=== PATIENT | male | born 1950 | race Caucasian/White ===

== ENCOUNTER → 2016-03-06 | Outpatient (CLI) | payer BC ==
--- NOTE | 2016-03-06 17:31 | CONS ---
DATE OF CONSULTATION: REASON FOR CONSULTATION: Obstructive sleep apnea. This is a 66-year-old male patient coming in for evaluation and treatment of sleep apnea that was diagnosed back in 2007. The patient was investigated through [facility] back then, and he was given a CPAP machine which he was unable to use more than 6 months. He quit the treatment, and over the years he became much more symptomatic. He is at the point where his sleep quality is very poor and he is having excessive daytime fatigue and sleepiness with weakness, lethargy and diminished stamina. He is snoring loudly. He stops breathing on multiple occasions. He chokes and gasps for air during sleep. His sleep is quite restless and fragmented. He goes to bed around 10 p.m., wakes up at 4:45 a.m. in the morning. He is averaging around 6 hours of sleep. He has gained a significant amount of weight over the years; his weight is up by around 25 pounds over the past 5 years. His current [place] score is 7. PAST MEDICAL HISTORY: 1. Obstructive sleep apnea. 2. Obesity. 3. Bronchial asthma. 4. Hypertension. 5. Hyperlipidemia. 6. GERD. 7. History of kidney cancer, resected. PAST SURGICAL HISTORY: 1. Partial nephrectomy. 2. Previous tracheostomy for prolonged vent-dependent respiratory failure postoperatively. ALLERGIES: 1. ZOCOR. 2. He also has allergies to ANIMAL DANDER, include including CATS. 3. PEANUT ALLERGY. Socially, he is a nonsmoker. No history of alcohol. No history IV drugs. FAMILY HISTORY: Noncontributory. Outpatient medication list includes: 1. Lasix 40 mg twice a day. 2. Albuterol nebulized treatments p.r.n. 3. Fenofibrate 200 mg p.o. daily. 4. Lisinopril 10 mg p.o. daily. 5. Metoprolol 100 mg twice a day. 6. Protonix 40 daily. 7. Potassium chloride 10 mEq tablet daily. 8. Singulair 10 mg p.o. daily. 9. Symbicort 160/4.5 two puffs twice a day. 10. Ventolin HFA on a p.r.n. basis. 11. Xolair 150 mg injection every 2 weeks. REVIEW OF SYSTEMS: Twelve-point review of systems was done; essentially negative other than things mentioned above in the history of present illness. No sleepwalking or sleeptalking. No hypnagogic hallucinations. No nocturnal GE reflux. No bruxism. No anxiety, depression or panic attacks. BP is 150/65, pulse 60, respirations 16, temperature 98.6. Saturation 93% on room air. Height is 5 feet 11 inches. Weight is 345. Neck size is 20-3/4 of an inch. BMI is 47.4. GENERAL APPEARANCE: Calm, comfortable. HEENT: Short neck. Crowding of the posterior pharynx. Mallampati class IV. No goiter or neck masses. LUNGS: Diminished breath sounds; otherwise clear. HEART: Sounds are regular rate and rhythm. Normal S1, S2. No S3. No S4. No murmurs. ABDOMEN: Soft, obese, nontender. Organs cannot be accurately palpated. There is no direct tenderness. No rebound tenderness or guarding. EXTREMITIES: Trace edema. There is no cyanosis or clubbing. IMPRESSION: 1. Symptomatic obstructive sleep apnea, currently under investigation. The patient will need a reevaluation to assess the presence and the severity of obstructive sleep apnea and treated accordingly. 2. Poor sleep quality for reasons mentioned above. 3. Hypersomnia with an [place] score of 7. 4. Obesity with a body mass index of 47.4. 5. Bronchial asthma, severe, persistent. 6. Hypertension. 7. Hyperlipidemia. 8. Gastroesophageal reflux disease. 9. History of kidney cancer, surgically resected. PLAN: 1. Encourage weight loss. 2. Implement good sleep hygiene measures. 3. Extend sleep hours to an average of 7 hours of sleep every night. 4. Proceed with a polysomnogram and treat accordingly. He will likely need to go back on CPAP titration. I will make the appropriate adjustments on his CPAP pressure and mask interface to ensure successful treatment.
== END | disposition home or self-care (01) ==
LOC: SLEEP 15:52
PROVIDERS: ATTEND Internal Medicine Critical Care Medicine
DX: G47.33 Obstructive sleep apnea (adult) (pediatric) (principal); G47.10 Hypersomnia, unspecified; E66.9 Obesity, unspecified; Z68.42 Body mass index [BMI] 45.0-49.9, adult; J44.9 Chronic obstructive pulmonary disease, unspecified; I10 Essential (primary) hypertension; K21.9 Gastro-esophageal reflux disease without esophagitis; Z85.528 Personal history of other malignant neoplasm of kidney; Z98.890 Other specified postprocedural states; Z79.899 Other long term (current) drug therapy; Z88.8 Allergy status to other drugs, medicaments and biological substances; Z91.010 Allergy to peanuts; Z91.048 Other nonmedicinal substance allergy status
CPT/HCPCS: 99211

== ENCOUNTER → 2016-07-18 | Outpatient (CLI) | payer BC ==
--- NOTE | 2016-07-19 08:20 | XR ---
EXAMINATION TYPE: XR tibia fibula RT DATE OF EXAM: 07/18/2016 11:52 AM COMPARISON: NONE HISTORY: Cellulitis TECHNIQUE: Two views are submitted. FINDINGS: The osseous structures are intact. The arthropathy of the knee joint noted. Ossifications adjacent t o the lateral malleolus or chronic. Correlate for previous trauma. No destructive changes. Calcaneal spur noted. Ossification adjacent to the anterior margin of the tibia appears chronic.. IMPRESSION: 1. No acute osseous abnormality.
== END ==
LOC: RADXRYALE 10:20
PROVIDERS: ATTEND Family Medicine
DX: M79.604 Pain in right leg (principal)

== ENCOUNTER → 2016-09-04 | Outpatient (CLI) | payer BC ==
--- NOTE | 2016-09-05 11:36 | PN ---
This patient was diagnosed as having severe obstructive sleep apnea with AHI of 95. The patient is morbidly obese and he was having excessive hypersomnia and sleepiness during the day. He also demonstrated severe nocturnal oxygen desaturations. The patient was started at BiPAP pressure of 24/20 cm of water and today is coming in for a compliancy check. He felt that initially it was difficult to tolerate this high level of pressure. However, he is at the point where he is loving it and he is feeling much more comfortable and rested at night while being on a BIPAP. He is currently on BIPAP at pressure of 24/20 and utilizing his Simplex Full Face mask medium sized. He is averaging 6.4 hours of BIPAP use every night. His BIPAP use for more than 4 hours is 100%. Leak factor is 23 liters per minute and a AHI while on treatment is down to 0.5. He is improving. He is benefiting from treatment.He is much more awake and alert during the day and his chronic hypersomnia is also improving. His current vitals: Blood pressure is 152/69, pulse 66, respirations 16, temperature 99.0, weight is 345, saturations are 92% on room air. GENERAL APPEARANCE: Calm, comfortable. HEENT: Short neck, crowding of posterior pharynx. LUNGS: Clear to auscultation. HEART: Sounds are regular rate and rhythm. Normal S1, S2. No S3, no murmurs. ABDOMEN: Soft, nontender. No organomegaly although this cannot be palpated due to morbid obesity. EXTREMITIES: No edema, no cyanosis, no clubbing. IMPRESSION: 1. Severe symptomatic obstructive sleep apnea with AHI of 95, currently on BIPAP with pressure of 24/20 with excellent clinical response and compliance. 2. Obesity, morbid, with body mass index of 48. 3. Hypertension. 4. Hyperlipidemia. 5. Bronchial asthma. PLAN: 1. Continue BIPAP therapy at the same level of pressures. 2. Patient is complaint and the patient was encouraged to lose weight. 3. Implement good sleep hygiene measures. 4. Clinically improve and will continue to follow. Will check a nocturnal oxygen analysis, oximetry to make sure the patient is not having any significant nocturnal oxygen desaturation and if not will keep the patient only on BIPAP and eliminate O2 supplements at night. 5. Will continue to follow. See me back in follow up. MANUEL
== END ==
LOC: SLEEP 16:18
PROVIDERS: ATTEND Internal Medicine Critical Care Medicine
DX: G47.33 Obstructive sleep apnea (adult) (pediatric) (principal); E66.9 Obesity, unspecified; E78.5 Hyperlipidemia, unspecified; I10 Essential (primary) hypertension; J45.909 Unspecified asthma, uncomplicated; Z68.42 Body mass index [BMI] 45.0-49.9, adult

== ENCOUNTER → 2017-03-05 | Outpatient (CLI) | payer BC ==
--- NOTE | 2017-03-05 17:47 | PN ---
PROGRESS NOTE This is a 67-year-old, obese male patient with established diagnosis of severe obstructive sleep apnea with an AHI of 95. The patient was initially treated with a BiPAP pressure of 24/20 cm of water. He had a good response. However, he was unable to tolerate the high BiPAP pressures. Based on that, I switched this patient to a VPAP RO with a maximum pressure of 24, and a minimum pressure of 10 and pressure support of 4. On today's evaluation, the patient is feeling much better. His leak around the mask is improved considerably and leak factor is down to 80 L per minute and is using a large-sized Simplus full face mask. He is averaging around 7.3 hours of BiPAP use per night. His average pressures are 15/11. His AHI is down to 0.3. He looks great. He feels much better. His sleep quality improved. He has no complaints and is very happy with ongoing treatment. He is tolerating the treatment without any major difficulty. BP is 156/94, pulse 64, respirations 16, temperature 16, temperature 98.1, saturation 96% on room air. Height is 6 foot 0, weight is 342. BMI 46.6. General appearance: Calm and comfortable. Head is atraumatic, normocephalic. Neck is short. There is no JVD. No goiter or neck masses. Mallampati class 4. Lungs clear to auscultation. Heart sounds regular rate and rhythm. Normal S1, S2. No S3. No S4, no murmurs. Abdomen is soft, nontender. No organomegaly. EXTREMITIES: No edema. No cyanosis or clubbing. IMPRESSION: 1. Severe obstructive sleep apnea with an AHI of 95 currently undergoing successful BiPAP therapy. The patient has a VPAP RO with an EPAP minimum of 10 and maximum of 24, with a pressure support of 4. Excellent clinical response and compliance. 2. Hypersomnia improved. 3. Hypertension. 4. Hyperlipidemia. 5. Obesity with a BMI of 46. 6. Bronchial asthma currently inactive and stable. PLAN: No need for any further adjustments or changes. The patient's treatment is successful. We will continue to follow and make further recommendations, if there is any new complaints in the future. For now the patient is receiving adequate treatment without any major issues. MMODL / IJN: [id number] /
== END | disposition home or self-care (01) ==
LOC: SLEEP 16:13
PROVIDERS: ATTEND Internal Medicine Critical Care Medicine
DX: G47.33 Obstructive sleep apnea (adult) (pediatric) (principal); I10 Essential (primary) hypertension; J45.909 Unspecified asthma, uncomplicated; E78.5 Hyperlipidemia, unspecified; E66.9 Obesity, unspecified; Z68.42 Body mass index [BMI] 45.0-49.9, adult; Z99.89 Dependence on other enabling machines and devices

== ENCOUNTER → 2017-10-21 | Outpatient (CLI) | payer BC ==
--- NOTE | 2017-10-21 13:30 | CT ---
EXAMINATION TYPE: CT abdomen pelvis wo con DATE OF EXAM: 10/21/2017 COMPARISON: 03/13/2012 HISTORY: 67-year-old male Right sided Abdominal and pelvic pain with diarrhea CT DLP: 2416.6 mGycm. Automated exposure control for dose reduction was used. TECHNIQUE: Contiguous axial scanning of the abdomen and pelvis without IV contrast. Coronal and sagit bette reconstructions performed. FINDINGS: Heart upper limits of normal in size with small pericardial effusion, similar to prior. Lung bases cl ear with tiny calcific granuloma at the right lower lung. No pleural effusion. Liver mildly enlarged at 18.9 cm. Slightly low density of the hepatic parenchyma at [address] [place] [address] ts suggesting fatty infiltration. Redemonstrated large 8.0 cm calculus with concentric calcifications in the nondistended gallbladder. No surrounding inflammatory change. A new 3.9 cm soft tissue nodule involves the lateral limb of the right adrenal gland. Similar soft tissue thickening and fat stranding along the posterior and inferior margin of the right kidney with surgical material relatively unchanged from 2012. No new suspicious masslike soft tissue or nodularity is seen in this region. Subcentimeter hypodensity medial upper pole left kidney appears smaller as compared to 2013 suggestin g a benign etiology. Couple small calcified granulomas in the spleen. Spleen is mildly enlarged at 14.1 cm on coronal seri es. Tiny hiatal hernia. Left adrenal gland and mildly atrophic pancreas show no gross abnormally. Retroaortic left renal vein. No dilated small bowel, free fluid, or free air. Soft tissue thickening at the level of the umbilicus suggest prior hernia repair. Scattered left hemicolonic diverticulosis with mild stool burden. Bladder not distended. Central prostatic calcifications. No abnormal fluid collection in the pelvis o r pelvic lymphadenopathy seen. Bones: Degenerative changes at the SI joints and throughout the visualized spine. IMPRESSION: 1. Stable postsurgical changes of partial right nephrectomy. No new suspicious nodularity is seen. 2. However, a 3.9 cm right adrenal nodule is new from 03/13/2012. Attenuation characteristics are not compatible with a lipid rich adrenal adenoma. Adrenal mass protocol CT can further evaluate. The poss ibility of metastatic disease is not excluded at this time. 3. Large concentrically calcified 8 cm gallstone redemonstrated. 4. Mild hepatomegaly and mild hepatic steatosis. 5. Tiny hiatal hernia and interval umbilical hernia repair. 6. Mild splenomegaly (13.1 cm) and left hemicolonic diverticulosis.
== END | disposition home or self-care (01) ==
LOC: RADCTMAIN 12:14
PROVIDERS: ATTEND Family Medicine
DX: K80.20 Calculus of gallbladder without cholecystitis without obstruction (principal); K76.0 Fatty (change of) liver, not elsewhere classified; R16.2 Hepatomegaly with splenomegaly, not elsewhere classified; K44.9 Diaphragmatic hernia without obstruction or gangrene; K57.30 Diverticulosis of large intestine without perforation or abscess without bleeding; E27.8 Other specified disorders of adrenal gland; Z90.5 Acquired absence of kidney; Z98.890 Other specified postprocedural states
CPT/HCPCS: 74176

== ENCOUNTER → 2017-12-26 | Outpatient (CLI) | payer BC | END | disposition home or self-care (01) | LOC: SLEEP 09:49 | PROVIDERS: ATTEND Internal Medicine Critical Care Medicine | DX: Z53.9 Procedure and treatment not carried out, unspecified reason (principal) ==

== ENCOUNTER → 2018-01-11 | Outpatient (CLI) | payer BC | END | disposition home or self-care (01) | LOC: RADMRIMAIN 09:28 | PROVIDERS: ATTEND Urology | DX: Z53.9 Procedure and treatment not carried out, unspecified reason (principal) ==

== ENCOUNTER → 2018-11-10 | Outpatient (CLI) | payer BC ==
--- NOTE | 2018-11-11 07:22 | CT ---
EXAMINATION TYPE: CT ChestAbdPelvis w con DATE OF EXAM: 11/10/2018 COMPARISON: CT abdomen October 29, 2017 and older CTs. HISTORY: Follow up renal cell cancer. Partial right nephrectomy and right adrenal gland removed. CT DLP: 3166.3 mGycm. Automated Exposure Control for Dose Reduction was Utilized. CONTRAST: CT scan of the thorax, abdomen and pelvis is performed with IV Contrast, patient injected with 100 mL of Isovue M300. FINDINGS: LUNGS: The lungs are grossly clear, there is no concerning parenchymal mass or nodule identified. T here is no pleural effusion or pneumothorax seen. The tracheobronchial tree is patent. MEDIASTINUM: There are no greater than 1 cm hilar or mediastinal lymph nodes. Small to moderate size pericardial effusion redemonstrated slightly larger versus prior study measuring up to 23 mm in thick ness. No cardiomegaly. Coronary artery calcification is redemonstrated which is noted marker for unde rlying coronary artery disease. OTHER: Small degree of bilateral retroareolar gynecomastia is noted. LIVER/GB: Gallbladder not visualized presumably surgically absent. Liver is diffusely low dense relat terry to spleen consistent with diffuse fatty infiltration. Prominent right hepatic lobe is noted. PANCREAS: No significant abnormality is seen. SPLEEN: Occasional calcification scattered out the spleen is redemonstrated.. ADRENALS: Previously visualized right adrenal mass now clearly seen, suspect interval surgical resect ion posterior to IVC near axial image 62. KIDNEYS: Postsurgical change to posterior mid to lower pole of the right kidney redemonstrated with c urvilinear soft tissue density that contains central fat. There is anterior inferior surgical clip. T here is no new suspicious nodularity or enhancement identified. There is symmetric cortical medullary uptake and excretion without hydronephrosis seen bilaterally. No concerning new solid or cystic lb l masses are present. Bladder not greatly distended otherwise unremarkable. BOWEL: Oral contrast reaches level of transverse colon. There is no suspicious small or large bowel d ilatation. Some diverticula are seen in the left and sigmoid colon. Mild fecal prominence in the sigm oid rectal colon. GENITAL ORGANS: Prostate gland upper limits of normal in size bulging on bladder base with central ca lcifications. LYMPH NODES: No greater than 1cm abdominal or pelvic lymph nodes are appreciated. OSSEOUS STRUCTURES: Multilevel spurring in the spine. Multilevel disc space narrowing in the lower hanh mbar spine. Moderate narrowing of both hip joints. OTHER: No significant additional abnormality is seen. 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 Post partial nephrectomy treatment changes to the right kidney redemonstrated wi thout evidence of new or recurrent suspicious renal mass. Note is made of small to moderate-sized per icardial effusion increasing in size slightly from older exams.
== END | disposition home or self-care (01) ==
LOC: RADCTMAIN 11:54
PROVIDERS: ATTEND Internal Medicine Hematology & Oncology
DX: I31.3 Pericardial effusion (noninflammatory) (principal); C64.1 Malignant neoplasm of right kidney, except renal pelvis; Z90.5 Acquired absence of kidney; Z88.8 Allergy status to other drugs, medicaments and biological substances
CPT/HCPCS: 82565; 84520; 71260; 74177; 36415; Q9967

== ENCOUNTER → 2019-04-28 | Outpatient (CLI) | payer BC, MEDICARE ==
--- NOTE | 2019-04-28 13:39 | CT ---
EXAMINATION TYPE: CT ChestAbdPelvis w con DATE OF EXAM: 04/28/2019 COMPARISON: 11/10/2018 main HISTORY: Renal cell cancer CT DLP: 2940.20 mGycm. Automated Exposure Control for Dose Reduction was Utilized. CONTRAST: CT scan of the thorax, abdomen and pelvis is performed with IV Contrast, patient injected with 100 ml mL of Isovue 300. FINDINGS: LUNGS: The lungs are grossly clear, there is no concerning parenchymal mass or nodule identified. T here is no pleural effusion or pneumothorax seen. The tracheobronchial tree is patent. MEDIASTINUM: There are no greater than 1 cm hilar or mediastinal lymph nodes. No pericardial effusi on is seen. The main pulmonary artery is enlarged measuring 3.9 cm. Small pericardial effusion measu res 1.4 cm in greatest thickness posteriorly and appears simple fluid in nature. Moderate coronary ca lcification seen. OTHER: Minimal retroareolar symmetric bilateral probable gynecomastia. LIVER/GB: Unremarkable unenhanced morphology. Gallbladder is not seen and presumed to be surgically a bsent. Liver approaches criteria for mild degree hepatic steatosis. PANCREAS: No significant abnormality is seen. SPLEEN: Few scattered benign granulomas. ADRENALS: Right adrenal gland is surgically absent. Left adrenal gland is unremarkable. KIDNEYS: There are stable postsurgical changes of the right mid to lower pole of the kidney with fat necrosis seen posterior to the renal midpole extending inferiorly towards surgical clips. Surrounding minimal curvilinear soft tissue density is unchanged. No new suspicious renal mass or local adenopat hy. The kidneys enhance nearly symmetrically bilaterally other than a 9 mm right upper pole renal cys t and lower pole stable too small to accurately characterize hypoattenuated lesion on series 5 image 44. Additionally on the left there is a stable 1.2 cm hypoattenuated renal lesion. BOWEL: There are numerous scattered diverticula without pericolonic fat stranding. There is a small h iatal hernia. No dilated large or small bowel. GENITAL ORGANS: Central zone calcifications are seen. LYMPH NODES: No greater than 1cm abdominal or pelvic lymph nodes are appreciated. OSSEOUS STRUCTURES: Bridging anterior osteophytes of the thoracic spine suggest diffuse idiopathic sk eletal hyperostosis. Overall moderate degenerative disc disease of the thoracolumbar spine. No new correia spicious osseous lesion seen moderate arthropathy of the hips. IMPRESSION: 1. Postsurgical change of the right kidney with stable surrounding fat necrosis. Similar stable bilat eral renal lesions that are too small to accurately characterize. 2. Hepatic attenuation approaches criteria for mild hepatic steatosis. 3. Redemonstration of a small simple fluid attenuated pericardial effusion. 4. No new suspicious osseous lesion or pulmonary nodule seen.
== END | disposition home or self-care (01) ==
LOC: RADCTMAIN 09:02
PROVIDERS: ATTEND Internal Medicine Hematology & Oncology
DX: Z08 Encounter for follow-up examination after completed treatment for malignant neoplasm (principal); I31.3 Pericardial effusion (noninflammatory); K76.0 Fatty (change of) liver, not elsewhere classified; Z88.8 Allergy status to other drugs, medicaments and biological substances; Z91.018 Allergy to other foods; Z85.528 Personal history of other malignant neoplasm of kidney
CPT/HCPCS: 82565; 84520; 71260; 74177; 36415; Q9967

== ENCOUNTER → 2019-10-26 | Outpatient (CLI) | payer MEDICARE | END | disposition home or self-care (01) | LOC: LABWHC1 11:42 | PROVIDERS: ATTEND Internal Medicine Critical Care Medicine | DX: J45.909 Unspecified asthma, uncomplicated (principal); J42 Unspecified chronic bronchitis | CPT/HCPCS: 36415; 82785; 85008 ==

== ENCOUNTER → 2019-10-27 | Outpatient (CLI) | payer MEDICARE ==
--- NOTE | 2019-10-27 12:14 | CT ---
EXAMINATION TYPE: CT ChestAbdPelvis w con DATE OF EXAM: 10/27/2019 COMPARISON: 04/28/2019 and 11/10/2018. 10/29/2017 HISTORY: 69-year-old male Renal cancer, suspected metastases, difficulty breathing TECHNIQUE: Contiguous axial scanning of the chest, abdomen, and pelvis performed with IV Contrast, pa tient injected with 100 mL of Isovue 300. Delayed images through the kidneys were obtained. Coronal/s agittal reconstructions performed. CT DLP: 4091.8 mGycm Automated exposure control for dose reduction was used. FINDINGS: CHEST: Heart upper limits of normal in size but with a moderate-sized pericardial effusion measuring up to 2 .2 cm thick in some regions, relatively similar to prior exam. Aorta normal caliber with conventional arterial serenity anatomy. Large caliber to the main right and left pulmonary arteries measuring up to 3.0 cm suggesting underly ing pulmonary arterial hypertension. Mild bilateral gynecomastia. Scattered nonenlarged mediastinal lymph nodes, largest subcarinal measuring 1.0 cm, unchanged. Mild emphysematous change in the upper lungs. Strandy atelectasis in the lower lungs. Additional stra ndy atelectasis or scarring superior segment left lower lobe, axial image 26. No consolidation or pleural effusion. ABDOMEN: Liver mildly enlarged at 18.2 cm. There is some low-attenuation suggesting possible fatty infiltratio n. No focal liver lesion. Portal venous system is patent. No biliary ductal dilatation seen. The bladder is surgically absent. Right adrenal gland not well seen. Left adrenal gland within normal limits. Small calcified granulomas within the spleen. Spleen mildly enlarged at 14.0 cm. Pancreas shows no gross abnormality. Retroaortic left renal vein. The left kidney again shows a vague hypodense area lateral mid to lower pole currently measuring 2.0 cm versus 1.7 cm on 04/28/2019 and 1.6 cm on 11/10/2018. There is only noted on the delayed kidney image s. Postsurgical change along the posterior aspect of the right kidney with stable densities comprised of central fat along the posterior right pararenal fat. Approximately 3 cortical hypodensities on the right, axial image 64, 68, and 70 (better seen on the d elayed kidney images) measuring up to 1.1 cm appear unchanged back to 11/10/2018. No dilated small bowel, free fluid, or free air. No mesenteric or retroperitoneal lymphadenopathy. No significant stool burden. Oral contrast progressed to the rectum. There is sigmoid diverticulosis without pericolic inflammatory change. PELVIS: Mild circumferential bladder wall thickening. Prostate gland prominent at 4.0 cm with central calcifi cations. Patulous left inguinal canal. No abnormal fluid collection in the pelvis or pelvic lymphaden opathy. BONES: Mild dependent soft tissue edema. No osseous destructive process. Degenerative changes at the hips, S I joints, and lumbar spine. [facility] within the mid to lower thoracic spine. IMPRESSION: 1. PARTIAL RESECTION CHANGES ALONG THE RIGHT KIDNEY WITH SIMILAR SURROUNDING FAT NECROSIS. NO EVIDENC E FOR LOCOREGIONAL RECURRENCE OR METASTATIC DISEASE. 2. A VAGUE 2.0 CM HYPODENSE AREA IN THE LEFT KIDNEY APPARENT ON THE DELAYED KIDNEY IMAGES IS SLIGHTLY LARGER VERSUS 1.7 CM ON 04/28/2019 AND 1.6 CM ON 11/10/2018. THIS COULD REPRESENT AN AREA OF PERFUSION VARIATION RATHER THAN A FOCAL LESION. CONTINUED FOLLOW-UP RECOMMENDED. 3. APPROXIMATELY THREE 1.1 CM AND SMALLER CORTICAL HYPODENSITIES IN THE RIGHT KIDNEY REMAIN UNCHANGED FROM 11/10/2018. 4. CONTINUED MODERATE PERICARDIAL EFFUSION MEASURING 2.2 CM THICK. 5. HEPATOSPLENOMEGALY (LIVER 18.2 CM AND SPLEEN 14.0 CM), COPD WITH MILD EMPHYSEMA, PULMONARY ARTERIA L HYPERTENSION, AND SIGMOID DIVERTICULOSIS.
== END | disposition home or self-care (01) ==
LOC: RADCTMAIN 08:54
PROVIDERS: ATTEND Internal Medicine Hematology & Oncology
DX: M79.89 Other specified soft tissue disorders (principal); I31.3 Pericardial effusion (noninflammatory); R16.2 Hepatomegaly with splenomegaly, not elsewhere classified; J43.9 Emphysema, unspecified; I27.21 Secondary pulmonary arterial hypertension; K57.30 Diverticulosis of large intestine without perforation or abscess without bleeding; C64.1 Malignant neoplasm of right kidney, except renal pelvis; Z98.890 Other specified postprocedural states; Z91.010 Allergy to peanuts; Z88.8 Allergy status to other drugs, medicaments and biological substances
CPT/HCPCS: 82565; 84520; 71260; 74177; 36415; Q9967

== ENCOUNTER → 2020-04-26 | Outpatient (CLI) | payer MEDICARE ==
--- NOTE | 2020-04-26 12:07 | CT ---
EXAMINATION TYPE: CT ChestAbdPelvis w con DATE OF EXAM: 04/26/2020 COMPARISON: 10/27/2019 HISTORY: 70-year-old male C6 4.1, Renal cancer TECHNIQUE: Contiguous axial scanning of the chest, abdomen, and pelvis performed with IV Contrast, pa tient injected with 100 ml mL of Isovue 300. Delayed images through the kidneys were obtained. Salgado l/sagittal reconstructions performed. CT DLP: 2333 mGycm Automated exposure control for dose reduction was used. FINDINGS: CHEST: Heart normal size with a moderate-sized pericardial effusion measuring up to 2.0 cm thick, stable to slightly increased from 10/27/2019. Aorta normal caliber with conventional arch vessel branching anatomy. Large caliber to the main right and the pulmonary arteries measuring up to 3.3 cm. Numerous mediastinal lymph nodes are noted. These are nonenlarged, largest along the lower right para tracheal region is borderline in size at 1.0 cm versus 8 mm, previously. The other small nonenlarged lymph nodes have increased in size as well. Right infrahilar lymph node 8 mm versus 5 mm, previously. Mild centrilobular emphysema. Couple calcified granulomas in the left midlung. Vague curvilinear dens ity superior segment left lower lobe, axial image 31 is unchanged. No consolidation or pleural effusi on. ABDOMEN: Liver mildly enlarged measuring 18.3 cm. There may be mild fatty infiltration of the liver. Small 7 m m hypervascular focus within the mid right liver lobe was seen back to at least 04/28/2019, possibly ar ea of vascular shunting or flash filling hemangioma. Gallbladder surgically absent. Portal venous system is patent. No biliary ductal dilatation. There is a vague area of hypoenhancement along the lateral mid left kidney, reference axial image 78. Particularly axial image 43 of the delayed kidney images. Redemonstrated postsurgical/posttreatment change along the posterior right pararenal fat. An underlyi ng cortical 1.5 cm hypodensity measured 1.4 cm on 10/27/2019 and 1.1 cm on 04/28/2019. This is better see n on the delayed kidney images. Adrenal glands, spleen, and pancreas show no gross adenopathy. Retroaortic left renal vein. No dilated small bowel, free fluid, or free air. No mesenteric or retroperitoneal lymphadenopathy. Normal appendix. Mild scattered stool. There is proximal to mid sigmoid diverticulosis without xenia lonic inflammation. PELVIS: Bladder incompletely distended. Central prostatic calcifications. The prostate gland measures 4.3 cm wide. No abnormal fluid collection in the pelvis or pelvic lymphadenopathy. BONES: Degenerative change of the hips and SI joints. Moderate degenerative disc disease throughout the lumb ar spine and dish within the mid to lower thoracic spine. IMPRESSION: 1. REDEMONSTRATED POST SURGICAL/POST TREATMENT CHANGE ALONG THE POSTERIOR RIGHT PARARENAL SPACE WITHO UT ANY NEW OR INCREASING NODULARITY TO SUGGEST LOCAL RECURRENCE. 2. CONTINUED FOLLOW-UP RECOMMENDED GIVEN AN UNDERLYING CORTICAL HYPODENSITY WITHIN THE RIGHT KIDNEY C URRENTLY MEASURING 1.5 CM VERSUS 1.4 CM ON 10/27/2019 AND 1.1 CM ON 04/28/2019. POSSIBLE SMALL CYST. 3. CONTINUED FOLLOW-UP FOR A VAGUE AREA OF HYPOENHANCEMENT IN THE MID LEFT KIDNEY MEASURING APPROXIMA TELY 2.4 CM. (VERSUS 2.0 CM ON 10/27/2019 AND 1.7 CM ON 04/28/2019). THIS HAS A NONMASSLIKE CONFIGURATION . AGAIN, ATTENTION ON FOLLOW-UP. 4. FOLLOW-UP ALSO RECOMMENDED FOR NUMEROUS NONENLARGED MEDIASTINAL LYMPH NODES WHICH ARE INCREASING I N SIZE COMPARED TO 10/27/2019, LARGEST MEASURING 1.0 CM LOWER RIGHT PARATRACHEAL. THESE MAY BE REACT NUSRAT/POST INFLAMMATORY. FOLLOW-UP TO EXCLUDE EARLY METASTATIC LYMPH NODES. 5. CONTINUED MODERATE PERICARDIAL EFFUSION, PULMONARY ARTERY HYPERTENSION, AND SIGMOID DIVERTICULOSIS .
== END | disposition home or self-care (01) ==
LOC: RADCTMAIN 08:51
PROVIDERS: ATTEND Internal Medicine Hematology & Oncology
DX: I31.3 Pericardial effusion (noninflammatory) (principal); I27.21 Secondary pulmonary arterial hypertension; K57.30 Diverticulosis of large intestine without perforation or abscess without bleeding; N28.89 Other specified disorders of kidney and ureter; R93.422 Abnormal radiologic findings on diagnostic imaging of left kidney; E11.9 Type 2 diabetes mellitus without complications; C64.1 Malignant neoplasm of right kidney, except renal pelvis; Z79.84 Long term (current) use of oral hypoglycemic drugs; Z91.010 Allergy to peanuts; Z88.8 Allergy status to other drugs, medicaments and biological substances; Z98.890 Other specified postprocedural states
CPT/HCPCS: 82565; 84520; 71260; 74177; 36415; Q9967

== ENCOUNTER 2020-05-06 06:01 | Day surgery (SDC) | payer MEDICARE ==
[2020-05-03 10:43] VITALS: BMI 43.0
[2020-05-06] MEDS ORDERED: HEPARIN SODIUM,PORCINE 2,500 UNIT in SODIUM CHLORIDE 0.9% 250 ML IRRIGATION PRN (06:06)
[2020-05-06] MEDS ORDERED: ASPIRIN 325 MG TAB PO STA (06:06)
[2020-05-06] MEDS ORDERED: ALPRAZolam 0.25 MG TAB PO PRN (06:06)
[2020-05-06] MEDS ORDERED: NITROGLYCERIN SL TABS 0.4 MG TAB SUBLINGUAL PRN (06:06)
[2020-05-06] MEDS ORDERED: SODIUM CHLORIDE 0.9% 1,000 ML in EMPTY BAG 1 BAG IV ONE (06:06)
[2020-05-06] MEDS ORDERED: HEPARIN SODIUM,PORCINE 10,000 UNIT in SODIUM CHLORIDE 0.9% 1,000 ML IRRIGATION PRN (06:06)
[2020-05-06 06:38] LABS: Glucose,Whole Blood 123 mg/dL (75-99)
[2020-05-06 06:44] LABS: Basophils # (A) 0.1 k/uL (0-0.2); Basophils % (A) 1 %; Eosinophils # (A) 0.4 k/uL (0-0.7); Eosinophils % (A) 4 %; HGB 17.9 gm/dL (13.0-17.5); Lymphocytes # (A) 1.2 k/uL (1.0-4.8); Lymphocytes % (A) 15 %; MCH 30.4 pg (25.0-35.0); MCHC 34.4 g/dL (31.0-37.0); MCV 88.6 fL (80.0-100.0); Mean Platelet Volume 6.8; Monocytes # (A) 0.5 k/uL (0-1.0); Monocytes % (A) 6 %; Neutrophils # (A) 5.8 k/uL (1.3-7.7); Neutrophils % (A) 72 %; Platelet Count 202 k/uL (150-450); RBC 5.87 m/uL (4.30-5.90); RDW 13.8 % (11.5-15.5); WBC 8.1 k/uL (3.8-10.6)
[2020-05-06 06:52] VITALS: RESP 18; TEMP 99
[2020-05-06] MEDS ORDERED: LIDOCAINE 1% INJ 10MG/ML (20 ML MDV) ONE (07:16)
[2020-05-06] MEDS ORDERED: fentaNYL (PF) 50 MCG/ML 2 ML AMP ONE (07:21)
[2020-05-06] MEDS ORDERED: fentaNYL (PF) 50 MCG/ML 2 ML AMP IVP ONE ×3 (07:24→07:27)
[2020-05-06] MEDS ORDERED: MIDAZOLAM 2 MG/2 ML VIAL IVP ONE (07:24)
[2020-05-06] MEDS ORDERED: LIDOCAINE 1% INJ 10MG/ML (20 ML MDV) SQ ONE (07:24)
[2020-05-06] MEDS ORDERED: IOPAMIDOL-370 125ML BTL INJ ONE (07:50)
[2020-05-06 07:58] LABS: O2 Sat Blood Gas 67.6 %
[2020-05-06 07:59] LABS: O2 Sat Blood Gas 67.9 %
[2020-05-06 08:16] LABS: O2 Sat Blood Gas 71.2 %
[2020-05-06] MEDS ORDERED: RX INFO: IV CONTRAST WAS GIVEN 1 EACH MISC MISCELLANE PRN (09:16)
[2020-05-06] MEDS ORDERED: SODIUM CHLORIDE 0.9% 1,000 ML IV SCH (09:30)
--- NOTE | 2020-05-06 12:19 | CC ---
CARDIAC CATHETERIZATION REPORT RIGHT AND LEFT HEART CATHETERIZATION: INDICATION: Progressively worsening shortness of breath. This is a 70-year-old gentleman with multiple medical problems including sleep apnea, morbid obesity, hypertension, diabetes, dyslipidemia, and COPD who presented to us with worsening shortness of breath of several months duration. He had a negative stress test in the outpatient setting. Echocardiogram showed normal LV systolic function, small pericardial effusion and pulmonary hypertension. Due to this, he was advised to undergo right and left heart catheterization to rule out LV systolic dysfunction, coronary artery disease and evaluate his pulmonary pressures. The patient has been explained of risks, benefits and alternatives, understood and accepted. RIGHT HEART CATHETERIZATION: After obtaining informed consent, right heart catheterization was performed via the right femoral vein using the Helena-Summer catheter. The initial femoral venous access was obtained and the catheter was floated into the right heart under fluoroscopic guidance. The O2 saturations showed an RA saturation of 67%, RV saturation of 67%. PA was 71 and was 92. Cardiac output by thermodilution technique was 6.3; by Jones method was 6.9. The pressures showed a mean papillary wedge pressure of 16 mm. The PA pressure was 102 mm systolic and 40 mm diastolic. RV pressure was 107 mm of systolic at 21 mm diastolic. Mean right atrial pressure was 11 mm. LEFT HEART CATHETERIZATION: 1. HEMODYNAMICS: Left ventricular end-diastolic pressure is 22 mm. 2. LEFT VENTRICULOGRAM: Left ventriculogram is performed in OSBORNE position shows normal left ventricular size and systolic function with ejection fraction of 70%. 3. ANGIOGRAPHIC DATA: Left main coronary artery: Left main coronary artery is a normal-size vessel and is free of stenosis. Divides into left anterior descending coronary artery and circumflex coronary artery. LAD and its branches, circumflex coronary artery and its branches are free of significant stenosis. Right coronary artery is a dominant vessel and is free of significant disease. CONCLUSIONS: 1. Normal coronary arteries. 2. Normal left ventricular systolic function. 3. Severe pulmonary hypertension. PLAN: I am going to refer the patient to Pulmonary Hypertension Clinic at [facility]. The patient probably has secondary pulmonary hypertension related to multiple underlying problems including severe obstructive sleep apnea, hypertensive heart disease, COPD, and morbid obesity. MMODL / IJN: [id number] /
--- NOTE | 2020-05-06 12:22 | LTR ---
May 06, 2020 Re: Mani Watson Dear Miguel Ángel: I performed right and left heart catheterization on Mani Watson. The detailed catheterization note is enclosed for your records. In brief, his cardiac catheterization revealed normal coronary arteries, normal LV systolic function and severe pulmonary hypertension. I am going to refer the patient to Pulmonary Hypertension Clinic at [facility]. Thank you for giving me the privilege to participate in the care of this pleasant gentleman. Sincerely, MD CADY Goldstein / DAMIEN: [id number] /
[2020-05-06 14:05] VITALS: BP 136/64; PULSE 62
== END 2020-05-06 13:45 | disposition home or self-care (01) ==
LOC: CATHCVL 06:01
PROVIDERS: ATTEND Internal Medicine Cardiovascular Disease
DX: I27.20 Pulmonary hypertension, unspecified (principal); R06.02 Shortness of breath; I31.3 Pericardial effusion (noninflammatory); R06.00 Dyspnea, unspecified; J43.9 Emphysema, unspecified; I11.9 Hypertensive heart disease without heart failure; E66.01 Morbid (severe) obesity due to excess calories; G47.33 Obstructive sleep apnea (adult) (pediatric); E78.2 Mixed hyperlipidemia; R60.0 Localized edema; E11.9 Type 2 diabetes mellitus without complications; Z68.41 Body mass index [BMI] 40.0-44.9, adult; Z85.528 Personal history of other malignant neoplasm of kidney; Z98.890 Other specified postprocedural states; Z72.0 Tobacco use; Z79.899 Other long term (current) drug therapy; Z79.51 Long term (current) use of inhaled steroids; Z79.84 Long term (current) use of oral hypoglycemic drugs; Z88.8 Allergy status to other drugs, medicaments and biological substances; Z91.010 Allergy to peanuts
CPT/HCPCS: 93460; 85018; 82810; 85025; C1769 ×3; C1760; C1894 ×2; J2250; J2001; J3010; Q9967

== ENCOUNTER → 2020-05-17 | Outpatient (CLI) | payer MEDICARE ==
--- NOTE | 2020-05-17 11:40 | US ---
EXAMINATION TYPE: US venous doppler duplex LE BI DATE OF EXAM: 05/17/2020 11:18 AM COMPARISON: 10/06/2013 CLINICAL HISTORY: I27.20 Pulmonary hypertension, unspecified. LEG SWELLING, SOB SIDE PERFORMED: Bilateral TECHNIQUE: The lower extremity deep venous system is examined utilizing real time linear array sonog diana with graded compression, doppler sonography and color-flow sonography. VESSELS IMAGED: Common Femoral Vein Deep Femoral Vein Greater Saphenous Vein * Femoral Vein Popliteal Vein Small Saphenous Vein * Proximal Calf Veins (* superficial vessels) Right Leg: Negative for DVT, extensive edema rt leg > lt leg Left Leg: Negative for DVT IMPRESSION: Grayscale, color doppler, spectral doppler imaging performed of the deep veins of the lo wer extremities. There is normal flow, compressibility, vascular waveforms. Stents of soft tissue e dewey greater on the right.
--- NOTE | 2020-05-18 08:53 | NM ---
EXAMINATION TYPE: NM pul vent and perfuse DATE OF EXAM: 05/17/2020 COMPARISON: 05/17/2020 HISTORY: CHRONIC PE TECHNIQUE: Utilizing inhalation of 37.2 mCi Tc 99m DTPA aerosol and intravenous injection of 5.2 mCi of Tc 99m MAA, ventilation and perfusion images are acquired post injection in multiple projections. FINDINGS: There are numerous matched defects noted bilaterally. Cannot exclude a small mismatched defect in the right upper lobe. Reduced uptake involving the ventilation images may be partially related to centra l clumping of radiotracer. IMPRESSION: 1. Intermediate to high probability for pulmonary embolism. Report called to referring clinician 05/18 at 8:48 AM.
== END | disposition home or self-care (01) ==
LOC: RADUSWWP 10:47
PROVIDERS: ATTEND Internal Medicine Cardiovascular Disease
DX: R60.0 Localized edema (principal)
CPT/HCPCS: 93970; 78582; A9540; A9567

== ENCOUNTER → 2020-05-17 | Outpatient (CLI) | payer MEDICARE ==
--- NOTE | 2020-05-17 16:50 | XR ---
EXAMINATION TYPE: XR chest 2V DATE OF EXAM: 05/17/2020 COMPARISON: 01/03/2016. HISTORY: Chest pain. TECHNIQUE: Frontal and lateral views of the chest are obtained. FINDINGS: There is mild bibasilar atelectasis. No significant infiltrate, pleural effusion, or pneum othorax seen. Moderate cardiomegaly. The osseous structures are intact. IMPRESSION: Cardiomegaly without acute cardiopulmonary process.
== END | disposition home or self-care (01) ==
LOC: RADXRMAIN 15:58
PROVIDERS: ATTEND Internal Medicine Cardiovascular Disease
DX: R07.9 Chest pain, unspecified (principal); I51.7 Cardiomegaly
CPT/HCPCS: 71046

== ENCOUNTER 2020-05-18 10:38 | Inpatient (IN) | payer MEDICARE ==
[2020-05-18] MEDS ORDERED: HEPARIN SODIUM,PORCINE 10,000 UNIT/ML 1 ML VIAL IV ONE (10:55)
--- NOTE | 2020-05-18 10:58 | ED ---
General Adult HPI - General Chief complaint: Shortness of Breath Stated complaint: blood clot on lung-sent by Rich Time Seen by Provider: 05/18/20 10:40 Source: patient, RN notes reviewed, old records reviewed Mode of arrival: wheelchair Limitations: no limitations - History of Present Illness Initial comments: This is a 70-year-old male who presents to the emergency department because he was told today by Dr. Villanueva that he had a pulmonary embolism. Patient states she's been short of breath for a little while and has some pain in the back that runs up the right side of his back. Patient states as a sharp poking sensation. Patient denies any anterior chest pain. Patient denies any palpitations. Patient states she's got chronic swelling to legs but he denies any calf tenderness. Patient denies any recent fever chills or cough per patient denies any abdominal pain patient denies nausea vomiting or diarrhea. - Related Data Home Medications Medication Instructions Recorded Confirmed Albuterol Inhaler (Mhu) [Ventolin 1 puff INHALATION DAILY PRN 04/15/18 05/06/20 Hfa Inhaler (Mhu)] Budesonide/Formoterol Fumarate 2 puff INHALATION BID 04/15/18 05/06/20 [Symbicort 160-4.5 Mcg Inhaler] Furosemide [Lasix] 80 mg PO DAILY 04/15/18 05/06/20 Metoprolol Succinate [Toprol Xl] 100 mg PO BID 04/15/18 05/06/20 Montelukast [Singulair] 10 mg PO HS 04/15/18 05/06/20 Pantoprazole [Protonix] 40 mg PO DAILY 04/15/18 05/06/20 Potassium Chloride ER [K-Dur 10] 10 meq PO BID 04/15/18 05/06/20 amLODIPine BESYLATE 10 mg PO QAM 04/15/18 05/06/20 lisinopriL [Zestril] 10 mg PO BID 04/15/18 05/06/20 metFORMIN HCL [Glucophage] 500 mg PO BID 04/15/18 05/06/20 Albuterol Nebulized [Ventolin 2.5 mg INHALATION Q4H PRN 05/03/20 05/06/20 Nebulized] Pravastatin Sodium [Pravachol] 80 mg PO DAILY 05/03/20 05/06/20 Allergies Allergy/AdvReac Type Severity Reaction Status Date / Time peanut oil Allergy Anaphylaxis Verified 05/18/20 10:43 simvastatin [From Zocor] AdvReac muscle pain Verified 05/18/20 10:43 Review of Systems ROS Statement: Those systems with pertinent positive or pertinent negative responses have been documented in the HPI. ROS Other: All systems not noted in ROS Statement are negative. Past Medical History Past Medical History: Asthma, Cancer, Diabetes Mellitus, Deep Vein Thrombosis (DVT), GERD/Reflux, Hypertension, Pulmonary Embolus (PE), Renal Disease, Sleep Apnea/CPAP/BIPAP Additional Past Medical History / Comment(s): diverticulosis, rt renal cell carcinoma, DVT left knee post op nephrectomy History of Any Multi-Drug Resistant Organisms: None Reported Past Surgical History: Cholecystectomy Additional Past Surgical History / Comment(s): partial rt nephrectomy, adrenal gland removed, colonoscopy, vaughn cataracts Past Anesthesia/Blood Transfusion Reactions: Unable to Obtain Additional Past Anesthesia/Blood Transfusion Reaction / Comment(s): unknown after kidney sx was in drug induced coma for one month Past Psychological History: No Psychological Hx Reported Smoking Status: Never smoker Past Alcohol Use History: None Reported Past Drug Use History: None Reported General Exam - General Exam Comments Initial Comments: GENERAL: Patient is well-developed and well-nourished. Patient is nontoxic and well- hydrated and is in mild distress. ENT: Neck is soft and supple. No significant lymphadenopathy is noted. Oropharynx is clear. Moist mucous membranes. Neck has full range of motion without eliciting any pain. EYES: The sclera were anicteric and conjunctiva were pink and moist. Extraocular movements were intact and pupils were equal round and reactive to light. Eyelids were unremarkable. PULMONARY: Unlabored respirations. Good breath sounds bilaterally. No audible rales rhonchi or wheezing was noted. CARDIOVASCULAR: There is a regular rate and rhythm without any murmurs gallops or rubs. ABDOMEN: Soft and nontender with normal bowel sounds. SKIN: Skin is clear with no lesions or rashes and otherwise unremarkable. NEUROLOGIC: Patient is alert and oriented x3. Cranial nerves II through XII are grossly intact. Motor and sensory are also intact. Normal speech, volume and content. Symmetrical smile. MUSCULOSKELETAL: Normal extremities with adequate strength and full range of motion. 2+ edema bilateral. No calf tenderness. LYMPHATICS: No significant lymphadenopathy is noted PSYCHIATRIC: Normal psychiatric evaluation. Limitations: no limitations Course Vital Signs 05/18/20 10:41 Temperature 98.7 F Pulse Rate 62 Respiratory 19 Rate Blood Pressure 183/72 O2 Sat by Pulse 100 Oximetry Medical Decision Making - Medical Decision Making EKG shows sinus rhythm with occasional PVCs at 63 bpm HI interval is 200 QRS is 74 QT interval 420 QTC is 429. Patient's EKG shows inverted T waves in all precordial leads. No old EKG is available. I spoke with Dr. Aguilera she agreed to admit the patient admitted the patient wrote admitting orders I spoke with Dr. Black early about this patient and he wanted the patient admitted and started on heparin. I consulted Dr. Villanueva as well. I reviewed the VQ scan and it showed intermittent to high probability of a PE. Patient was started on high-dose heparin I continue the heparin on the floor. Critical Care Time Critical Care Time: Yes Total Critical Care Time: 35 Disposition Clinical Impression: Pulmonary embolism Disposition: ADMITTED IP TO THIS HOSP Referrals: Miguel Ángel Cordon DO [Primary Care Provider] - 1-2 days Time of Disposition: 11:39
[2020-05-18] MEDS: HEPARIN SOD,PORK IN 0.45% NACL 25,000 UNIT in 0.45% NACL 1 250ML.BAG IV SCH ×2 (11:43→23:13)
[2020-05-18 11:56] LABS: Basophils # (A) 0.1 k/uL (0-0.2); Basophils % (A) 1 %; Eosinophils # (A) 0.3 k/uL (0-0.7); Eosinophils % (A) 5 %; HCT 49.9 % (39.0-53.0); HGB 17.4 gm/dL (13.0-17.5); Lymphocytes # (A) 0.9 k/uL (1.0-4.8); Lymphocytes % (A) 15 %; MCH 30.8 pg (25.0-35.0); MCHC 34.9 g/dL (31.0-37.0); MCV 88.2 fL (80.0-100.0); Mean Platelet Volume 7.2; Monocytes # (A) 0.5 k/uL (0-1.0); Monocytes % (A) 7 %; Neutrophils # (A) 4.4 k/uL (1.3-7.7); Neutrophils % (A) 70 %; Platelet Count 165 k/uL (150-450); RBC 5.65 m/uL (4.30-5.90); RDW 13.6 % (11.5-15.5); WBC 6.2 k/uL (3.8-10.6)
[2020-05-18 12:07] LABS: Partial Thromboplastin Time 28.4 sec (22.0-30.0); Prothrombin Time 10.4 sec (9.0-12.0)
[2020-05-18 12:11] LABS: Calcium 9.3 mg/dL (8.4-10.2); Total Bilirubin 1.5 mg/dL (0.2-1.3)
[2020-05-18 12:16] LABS: Potassium 4.9 mmol/L (3.5-5.1)
[2020-05-18 12:17] LABS: Albumin 4.4 g/dL (3.5-5.0); Magnesium 1.8 mg/dL (1.6-2.3)
--- NOTE | 2020-05-18 14:22 | P.CRDCN ---
History of Present Illness Consult date: 05/18/20 History of present illness: HISTORY OF PRESENT ILLNESS: This is a 70-year-old male with a past medical history significant for diabetes mellitus, DVT, hypertension, and renal cell carcinoma with partial right nephrectomy. Patient follows in the office with Dr. Villanueva. We have been asked to see the patient in consultation for pulmonary embolism. Patient examined at the bedside this afternoon in the emergency room. Patient reports he has been e xperiencing shortness of breath for the past 6 months. He states his dyspnea has gotten progressively worse. He states he is not short of breath at rest but becomes short of breath with minimal exertion. Patient was seen by Dr. Villanueva on 05/13/2020. Patient was ordered to have a VQ scan and a lower extremity Doppler to rule out thrombosis. Patient was also referred to the pulmonary hypertension clinic at [facility]. Patient states he has not been there yet though. Patient underwent VQ scan today revealing intermediate to high probability of PE. Patient was called by his delivery architect and told to come to the emergency room. Patient denies chest pain or pressure. Patient's blood pressure is elevated in the emergency room with a systolic in the 190s. Patient was recently started on clonidine a few days ago by Dr. Villanueva. Venous Doppler of lower extremities: Negative for DVT Chest x-ray cardiomegaly without acute pulmonary process Laboratory data: WBC 6.2. Hemoglobin 17.4. Platelet count 165. Sodium 141. Potassium 4.9. BUN 19. Creatinine 1.02. Magnesium 1.8. Troponin negative 1. Current home cardiac medications include Lasix 40 mg daily, metoprolol succinate 100 mg twice a day, lisinopril 10 mg twice a day, amlodipine 10 mg daily, pravastatin 80 mg daily, potassium chloride 10 meq twice a day. Most recent echocardiogram obtained in November 2019 revealed ejection fraction 55%, small pericardial effusion, mild mitral regurgitation, mild tricuspid regurgitation Cardiac catheterization history: Right and left heart catheterization performed on 05/06/2020 revealed normal coronary arteries, normal left ventricular systolic function, and severe pulmonary hypertension. REVIEW OF SYSTEMS: At the time of my exam: CONSTITUTIONAL: Denies fever or chills. HEENT: Denies blurred vision, vision changes, or eye pain. Denies hemoptysis CARDIOVASCULAR: Denies chest pain. Denies orthopnea. Denies PND. Denies palpitations RESPIRATORY: Denies shortness of breath. GASTROINTESTINAL: Denies abdominal pain. Denies nausea or vomiting. HEMATOLOGIC: Denies bleeding disorders. GENITOURINARY: Denies any blood in urine. SKIN: Denies pruitis. Denies rash. PHYSICAL EXAM: VITAL SIGNS: Reviewed. GENERAL: Well-developed in no acute distress. HEENT: Head is normocephalic. Pupils are equal, round. Sclerae anicteric. Mucous membranes of the mouth are moist. Neck supple. No JVD or thyromegaly LUNGS: Respirations even and unlabored. Lungs essentially clear to auscultation bilaterally. HEART: Regular rate and rhythm. S1 and S2 heard. ABDOMEN: Soft. Nondistended. Nontender. EXTREMITIES: Normal range of motion. No clubbing or cyanosis. Peripheral pulses intact. Trace bilateral lower extremity edema NEUROLOGIC: Awake and alert. Oriented x 3. ASSESSMENT: Exertional shortness of breath 6 months Pulmonary embolism, per VQ scan History of DVT, after kidney surgery Hypertension COPD Severe pulmonary hypertension Hyperlipidemia History of right renal cell carcinoma with partial right nephrectomy Obstructive sleep apnea Former nicotine dependence PLAN: No need to repeat echocardiogram as this was performed in the last 6 months and patient had recent cardiac cath revealing normal LV function Continue IV heparin for 24 hours Will transition to Eliquis tomorrow. Copay is $45 a month Resume home cardiac medications Begin catapres 0.2mg BID as this was recently started on an outpatient basis for uncontrolled hypertension Further recommendations pending patient course Nurse practitioner note has been reviewed by physician. Signing provider agrees with the documented findings, assessment, and plan of care. Past Medical History Past Medical History: Asthma, Cancer, Diabetes Mellitus, Deep Vein Thrombosis (DVT), GERD/Reflux, Hypertension, Pulmonary Embolus (PE), Renal Disease, Sleep Apnea/CPAP/BIPAP Additional Past Medical History / Comment(s): diverticulosis, rt renal cell carcinoma, DVT left knee post op nephrectomy History of Any Multi-Drug Resistant Organisms: None Reported Past Surgical History: Cholecystectomy Additional Past Surgical History / Comment(s): partial rt nephrectomy, adrenal gland removed, colonoscopy, vaughn cataracts Past Anesthesia/Blood Transfusion Reactions: Unable to Obtain Additional Past Anesthesia/Blood Transfusion Reaction / Comment(s): unknown after kidney sx was in drug induced coma for one month Past Psychological History: No Psychological Hx Reported Smoking Status: Never smoker Past Alcohol Use History: None Reported Past Drug Use History: None Reported Medications and Allergies Home Medications Medication Instructions Recorded Confirmed Type Budesonide/Formoterol Fumarate 2 puff INHALATION RT-BID 04/15/18 05/18/20 History [Symbicort 160-4.5 Mcg Inhaler] Metoprolol Succinate [Toprol Xl] 100 mg PO BID 04/15/18 05/18/20 History Montelukast [Singulair] 10 mg PO HS 04/15/18 05/18/20 History Potassium Chloride ER [K-Dur 10] 10 meq PO BID 04/15/18 05/18/20 History amLODIPine BESYLATE 10 mg PO QAM 04/15/18 05/18/20 History lisinopriL [Zestril] 10 mg PO BID 04/15/18 05/18/20 History metFORMIN HCL [Glucophage] 500 mg PO BID 04/15/18 05/18/20 History Albuterol Nebulized [Ventolin 2.5 mg INHALATION RT-QID PRN 05/03/20 05/18/20 History Nebulized] Pravastatin Sodium [Pravachol] 80 mg PO DAILY 05/03/20 05/18/20 History Albuterol Sulfate [Ventolin HFA] 2 puff INHALATION RT-Q4H PRN 05/18/20 05/18/20 History Apixaban [Eliquis Starter Pack 0 mg PO DIRECTED 30 Days #1 pack 05/18/20 Rx (for VTE)] Furosemide [Lasix] 40 mg PO DAILY 05/18/20 05/18/20 History Omalizumab [Xolair] 150 mg SQ Q14D 05/18/20 05/18/20 History Omeprazole [PriLOSEC] 40 mg PO DAILY 05/18/20 05/18/20 History Allergies Allergy/AdvReac Type Severity Reaction Status Date / Time peanut oil Allergy Anaphylaxis Verified 05/18/20 12:32 simvastatin [From Zocor] AdvReac muscle pain Verified 05/18/20 12:32 Physical Exam Vitals: Vital Signs Temp Pulse Resp BP Pulse Ox 05/18/20 10:41 98.7 F 62 19 183/72 100 Intake and Output 05/17/20 05/18/20 05/18/20 22:59 06:59 14:59 Other: Weight 147.418 kg Results 03/24/21 11:05 05/18/20 11:05 Cardiac Enzymes 05/18/20 05/18/20 Range/Units 11:05 11:05 AST 41 (17-59) U/L Troponin I <0.012 (0.000-0.034) ng/mL Coagulation 05/18/20 Range/Units 11:05 PT 10.4 (9.0-12.0) sec APTT 28.4 (22.0-30.0) sec CBC 05/18/20 Range/Units 11:05 WBC 6.2 (3.8-10.6) k/uL RBC 5.65 (4.30-5.90) m/uL Hgb 17.4 (13.0-17.5) gm/dL Hct 49.9 (39.0-53.0) % Plt Count 165 (150-450) k/uL Comprehensive Metabolic Panel 05/18/20 Range/Units 11:05 Sodium 141 (137-145) mmol/L Potassium 4.9 (3.5-5.1) mmol/L Chloride 106 (98-107) mmol/L Carbon Dioxide 24 (22-30) mmol/L BUN 19 (9-20) mg/dL Creatinine 1.02 (0.66-1.25) mg/dL Glucose 107 H (74-99) mg/dL Calcium 9.3 (8.4-10.2) mg/dL AST 41 (17-59) U/L ALT 30 (4-49) U/L Alkaline Phosphatase 60 (38-126) U/L Total Protein 7.0 (6.3-8.2) g/dL Albumin 4.4 (3.5-5.0) g/dL Current Medications Generic Name Dose Route Start Last Admin Trade Name Freq PRN Reason Stop Dose Admin Amlodipine Besylate 10 mg 05/19/20 09:00 Amlodipine 10 Mg Tab PO QAM DAT Furosemide 40 mg 05/19/20 09:00 Furosemide 40 Mg Tab PO DAILY DAT Heparin Sodium/Sodium Chloride 250 mls @ 23 mls/hr 05/18/20 11:00 05/18/20 11:43 25,000 unit/ Sodium Chloride IV 15.602 units/kg/hr .[id number] DAT 23 mls/hr Administration Protocol 15.602 UNITS/KG/HR Lisinopril 10 mg 05/18/20 21:00 Lisinopril 10 Mg Tab PO BID DAT Metoprolol Succinate 100 mg 05/18/20 21:00 Metoprolol Succinate (Er) 100 Mg Tab.Er.24h PO BID DAT Pravastatin Sodium 80 mg 05/19/20 09:00 Pravastatin Sodium 80 Mg Tab PO DAILY DAT Intake and Output 05/17/20 05/18/20 05/18/20 22:59 06:59 14:59 Other: Weight 147.418 kg Patient Weight 05/19/20 06:59 Weight 147.418 kg 05/18/20 11:05 05/18/20 11:05
[2020-05-18] MEDS ORDERED: ALBUTEROL NEBULIZED 2.5 MG/3 ML INHALATION PRN (16:23)
[2020-05-18] MEDS ORDERED: MAGNESIUM SULFATE-D5W PMX 1 GM in DEXTROSE/WATER 1 100ML.BAG IVPB ONE (16:25)
--- NOTE | 2020-05-18 16:26 | P.HPIM ---
History of Present Illness H&P Date: 05/18/20 Chief Complaint: Positive VQ scan Mr. Watson is a 70-year-old male with a past medical history of hypertension, hyperlipidemia, asthma, DVT, GERD, hypertension, PE, obstructive sleep apnea, right renal cell carcinoma status post right partial nephrectomy and left knee arthroplasty sent in by Dr. Villanueva as his VQ scan has revealed intermediate to high probability of PE. Patient follows with Dr. Villanueva, he is being worked up for ongoing shortness of breath. Patient states that he had a stress test done and it was negative recently. So eventually he went to get a VQ scan that was intermediate to high probability of PE. He also had bilateral lower extremity Doppler that was negative for DVT. In the ER patient was started on IV heparin and admitted for further management. On review of systems patient denies having any fevers chills or rigors. Most recent sick contacts. No lower extremity swelling. No orthopnea or PND. No abdominal pain nausea vomiting or diarrhea. No dysuria or hematuria. Patient states that he had history of DVT after the right partial nephrectomy secondary to right renal cell carcinoma. Patient was not taking any anticoagulation at home. In the ER patient had blood work done showing a white count of 6.2, hemoglobin 17.4, platelets 165. Sodium 141, temperature <106, bicarbonate 24, BUN 19, creatinine 1.02. Magnesium 1.5. AST 41, ALT 30.COVID 19 - negative. Review of Systems REVIEW OF SYSTEMS: CONSTITUTIONAL: No fevers chills or rhinitis. HEENT: No recent visual problems or hearing problems. Denied any sore throat. CARDIOVASCULAR: No chest pain, orthopnea, PND, no palpitations, no syncope. PULMONARY: As per HPI. GASTROINTESTINAL: No diarrhea, no nausea, no vomiting, no abdominal pain. NEUROLOGICAL: No headaches, no weakness, no numbness. HEMATOLOGICAL: Denies any bleeding or petechiae. GENITOURINARY: Denies any burning micturition, frequency, or urgency. MUSCULOSKELETAL/RHEUMATOLOGICAL: As per HPI ENDOCRINE: Denies any polyuria or polydipsia. The rest of the 14-point review of systems is negative. Past Medical History Past Medical History: Asthma, Cancer, Diabetes Mellitus, Deep Vein Thrombosis (DVT), GERD/Reflux, Hypertension, Pulmonary Embolus (PE), Renal Disease, Sleep Apnea/CPAP/BIPAP Additional Past Medical History / Comment(s): diverticulosis, rt renal cell carcinoma, DVT left knee post op nephrectomy History of Any Multi-Drug Resistant Organisms: None Reported Past Surgical History: Cholecystectomy Additional Past Surgical History / Comment(s): partial rt nephrectomy, adrenal gland removed, colonoscopy, vaughn cataracts Past Anesthesia/Blood Transfusion Reactions: Unable to Obtain Additional Past Anesthesia/Blood Transfusion Reaction / Comment(s): unknown after kidney sx was in drug induced coma for one month Past Psychological History: No Psychological Hx Reported Smoking Status: Never smoker Past Alcohol Use History: None Reported Past Drug Use History: None Reported Medications and Allergies Home Medications Medication Instructions Recorded Confirmed Type Budesonide/Formoterol Fumarate 2 puff INHALATION RT-BID 04/15/18 05/18/20 History [Symbicort 160-4.5 Mcg Inhaler] Metoprolol Succinate [Toprol Xl] 100 mg PO BID 04/15/18 05/18/20 History Montelukast [Singulair] 10 mg PO HS 04/15/18 05/18/20 History Potassium Chloride ER [K-Dur 10] 10 meq PO BID 04/15/18 05/18/20 History amLODIPine BESYLATE 10 mg PO QAM 04/15/18 05/18/20 History lisinopriL [Zestril] 10 mg PO BID 04/15/18 05/18/20 History metFORMIN HCL [Glucophage] 500 mg PO BID 04/15/18 05/18/20 History Albuterol Nebulized [Ventolin 2.5 mg INHALATION RT-QID PRN 05/03/20 05/18/20 History Nebulized] Pravastatin Sodium [Pravachol] 80 mg PO DAILY 05/03/20 05/18/20 History Albuterol Sulfate [Ventolin HFA] 2 puff INHALATION RT-Q4H PRN 05/18/20 05/18/20 History Apixaban [Eliquis Starter Pack 0 mg PO DIRECTED 30 Days #1 pack 05/18/20 Rx (for VTE)] Furosemide [Lasix] 40 mg PO DAILY 05/18/20 05/18/20 History Omalizumab [Xolair] 150 mg SQ Q14D 05/18/20 05/18/20 History Omeprazole [PriLOSEC] 40 mg PO DAILY 05/18/20 05/18/20 History Allergies Allergy/AdvReac Type Severity Reaction Status Date / Time peanut oil Allergy Anaphylaxis Verified 05/18/20 12:32 simvastatin [From Zocor] AdvReac muscle pain Verified 05/18/20 12:32 Physical Exam Vitals: Vital Signs Temp Pulse Resp BP Pulse Ox 05/18/20 10:41 98.7 F 62 19 183/72 100 Intake and Output 05/18/20 05/18/20 05/18/20 06:59 14:59 22:59 Other: Weight 147.418 kg PHYSICAL EXAMINATION: GENERAL: The patient is alert and oriented x3, not in any acute distress. Well developed, well nourished. HEENT: Pupils are round and equally reacting to light. EOMI. No scleral icterus. No conjunctival pallor. Normocephalic, atraumatic. No pharyngeal erythema. CARDIOVASCULAR: S1 and S2 present. Loud P2. PULMONARY: Chest is clear to auscultation, no wheezing or crackles. ABDOMEN: Soft, nontender, nondistended, normoactive bowel sounds. No palpable organomegaly. MUSCULOSKELETAL: No joint swelling or deformity. EXTREMITIES: No cyanosis, clubbing, or pedal edema. NEUROLOGICAL: Gross neurological examination did not reveal any focal deficits. SKIN: No rashes Results CBC & Chem 7: 05/18/20 11:05 05/18/20 11:05 Labs: Abnormal Lab Results - Last 24 Hours (Table) 05/18/20 05/18/20 Range/Units 11:05 11:05 Lymphocytes # 0.9 L (1.0-4.8) k/uL Glucose 107 H (74-99) mg/dL Total Bilirubin 1.5 H (0.2-1.3) mg/dL Assessment and Plan Assessment: ASSESSMENT Moderate to high probability of PE on VQ scan Exertional dyspnea for 6 months Hypomagnesemia History of DVT not on anticoagulation History of right renal cell carcinoma Status post right partial nephrectomy Severe pulmonary hypertension COPD Hypertension Hyperlipidemia Former smoker Obstructive sleep apnea Morbid obesity with BMI of 42.9 PLAN: Patient has been started on IV heparin for the high probability of PE on VQ scan. Patient has been restarted on his home medications. Patient needs to be transferred patient to oral anticoagulantion. Cardiology has been consulted. Further recommendations to follow depending on the progress of the patient.
[2020-05-18] MEDS ORDERED: ALBUTEROL NEBULIZED 2.5 MG/3 ML INHALATION STA (19:53)
[2020-05-18] MEDS: SYMBICORT 160-4.5 MCG INHALER INHALATION SCH (20:41)
[2020-05-18] MEDS ORDERED: MONTELUKAST 10 MG TAB PO SCH (21:00)
[2020-05-18] MEDS: METOPROLOL SUCCINATE (ER) 100 MG TAB.ER.24H PO SCH (21:14)
[2020-05-18] MEDS: metFORMIN 500 MG TAB PO SCH (21:15)
[2020-05-18] MEDS: lisinopriL 10 MG TAB PO SCH (21:15)
[2020-05-18] MEDS: cloNIDine HCL 0.2 MG TAB PO SCH (21:15)
[2020-05-19 04:26] LABS: Basophils # (A) 0.1 k/uL (0-0.2); Basophils % (A) 1 %; Eosinophils # (A) 0.3 k/uL (0-0.7); Eosinophils % (A) 5 %; HCT 47.9 % (39.0-53.0); Lymphocytes # (A) 1.1 k/uL (1.0-4.8); Lymphocytes % (A) 16 %; MCH 29.8 pg (25.0-35.0); MCHC 33.4 g/dL (31.0-37.0); MCV 89.1 fL (80.0-100.0); Mean Platelet Volume 7.1; Monocytes # (A) 0.4 k/uL (0-1.0); Monocytes % (A) 6 %; Neutrophils # (A) 4.7 k/uL (1.3-7.7); Neutrophils % (A) 70 %; Platelet Count 163 k/uL (150-450); RBC 5.38 m/uL (4.30-5.90); RDW 14.2 % (11.5-15.5); WBC 6.7 k/uL (3.8-10.6)
[2020-05-19 04:44] LABS: Albumin 3.7 g/dL (3.5-5.0); Calcium 8.9 mg/dL (8.4-10.2); Total Bilirubin 1.5 mg/dL (0.2-1.3); Total Protein 5.8 g/dL (6.3-8.2)
[2020-05-19 06:21] LABS: Glucose,Whole Blood 124 mg/dL (75-99)
[2020-05-19] MEDS ORDERED: PANTOPRAZOLE 40 MG TABLET PO SCH (09:00)
[2020-05-19] MEDS ORDERED: PRAVASTATIN SODIUM 80 MG TAB PO SCH (09:00)
[2020-05-19] MEDS ORDERED: amLODIPine 10 MG TAB PO SCH (09:00)
[2020-05-19] MEDS ORDERED: FUROSEMIDE 40 MG TAB PO SCH (09:00)
[2020-05-19] MEDS: ALBUTEROL NEBULIZED 2.5 MG/3 ML INHALATION PRN ×2 (09:06→15:15)
[2020-05-19] MEDS: SYMBICORT 160-4.5 MCG INHALER INHALATION SCH (09:06)
[2020-05-19] MEDS: METOPROLOL SUCCINATE (ER) 100 MG TAB.ER.24H PO SCH (09:55)
[2020-05-19] MEDS: lisinopriL 10 MG TAB PO SCH (09:55)
[2020-05-19] MEDS: metFORMIN 500 MG TAB PO SCH (09:55)
[2020-05-19] MEDS: cloNIDine HCL 0.2 MG TAB PO SCH (09:55)
[2020-05-19 10:47] VITALS: RESP 20
[2020-05-19] MEDS: APIXABAN 5 MG TAB PO SCH ×2 (11:38→18:28)
[2020-05-19 11:57] LABS: Glucose,Whole Blood 113 mg/dL (75-99)
[2020-05-19 12:44] VITALS: BP 136/89; TEMP 97.5
--- NOTE | 2020-05-19 14:14 | P.PN ---
Subjective This is a pleasant 70-year-old male past medical history significant for pulmonary hypertension, diabetes mellitus, DVT, hypertension, renal cell carcinoma status post partial right nephrectomy. He follows in the office with Dr. Villanueva. He has been diagnosed yesterday with pulmonary embolism. Currently maintained on heparin infusion. He is seen and examined resting comfortably in no acute distress. He continues to have shortness of breath that has been going on for the previous one year. Blood pressure 136/89 heart rate 68 afebrile maintaining oxygen saturation on room air. GENERAL: Well-appearing, well-nourished and in no acute distress. Obese. NECK: Supple without JVD or thyromegaly. LUNGS: Breath sounds clear to auscultation bilaterally. Respiration equal and unlabored. No wheezes, rales or rhonchi. Diminished bilaterally. HEART: Regular rate and rhythm without murmurs, rubs or gallops. S1 and S2 heard. EXTREMITIES: Normal range of motion, no edema. No clubbing or cyanosis. Peripheral pulses intact. ASSESSMENT Exertional shortness of breath times one year Pulmonary embolism History of DVT Pulmonary hypertension COPD Obstructive sleep apnea Dyslipidemia Former nicotine dependence PLAN Transitioned to Eliquis 10 mg twice a day for 7 days and then 5 mg twice a day thereafter. The patient has severe pulmonary hypertension which may be secondary to recurrent PE. Recommend he be a lifelong long-term anticoagulation candidate. He can be discharged tonight after his second dose of eliquis. Follow up in the office with Dr. Villanueva. Nurse Practitioner note has been reviewed, I agree with a documented findings and plan of care. Patient was seen and examined. Objective - Vital Signs Vital signs: Vital Signs Temp 97.5 F L 05/19/20 12:42 Pulse 60 05/19/20 12:42 Resp 20 05/19/20 12:42 BP 136/89 05/19/20 12:42 Pulse Ox 93 L 05/19/20 12:42 Intake & Output 05/18/20 05/19/20 05/19/20 18:59 06:59 18:59 Intake Total 568.85 720 Balance 568.85 720 Weight 147.418 kg 146.6 kg Intake: Intake, IV Titration 328.85 Amount Heparin Sod,Pork in 0.45% 228.85 NaCl 25,000 unit In 0.45 % NaCl 1 250ml.bag @ 15. 602 UNITS/KG/HR 23 mls/hr IV .[id number] [facility] Rx#: [id number] Magnesium Sulfate-D5w Pmx 100 1 gm In Dextrose/Water 1 100ml.bag @ 100 mls/hr IVPB ONCE ONE Rx#: [id number] Oral 240 720 Other: Voiding Method Toilet Toilet # Voids 3 - Labs CBC & Chem 7: 05/19/20 03:48 05/19/20 03:48 Labs: Abnormal Lab Results - Last 24 Hours (Table) 05/18/20 05/19/20 05/19/20 Range/Units 18:43 03:48 03:48 APTT 137.8 H* 45.4 H (22.0-30.0) sec Glucose 111 H (74-99) mg/dL POC Glucose (mg/dL) (75-99) mg/dL Total Bilirubin 1.5 H (0.2-1.3) mg/dL Total Protein 5.8 L (6.3-8.2) g/dL 05/19/20 05/19/20 Range/Units 06:20 11:54 APTT (22.0-30.0) sec Glucose (74-99) mg/dL POC Glucose (mg/dL) 124 H 113 H (75-99) mg/dL Total Bilirubin (0.2-1.3) mg/dL Total Protein (6.3-8.2) g/dL
[2020-05-19 15:21] VITALS: PULSE 64
[2020-05-19] MEDS ORDERED: HEPARIN SOD,PORK IN 0.45% NACL 25,000 UNIT in 0.45% NACL 1 250ML.BAG IV SCH (15:45)
[2020-05-19 16:34] LABS: Glucose,Whole Blood 118 mg/dL (75-99)
--- NOTE | 2020-05-20 15:32 | P.DS ---
Providers Date of admission: 05/18/20 11:40 Expected date of discharge: 05/19/20 Attending physician: Marlin Johnston Consults: 05/18/20 11:40 Consult Physician Urgent Consulting Provider: Harjeet Villanueva Consult Reason/Comments: Pulmonary embolism Do you want consulting provider notified?: Yes Primary care physician: [facility] Course: Mr. Watson is a 70-year-old male with a past medical history of hypertension, hyperlipidemia, asthma, DVT, GERD, hypertension, PE, obstructive sleep apnea, right renal cell carcinoma status post right partial nephrectomy and left knee arthroplasty sent in by Dr. Villanueva as his VQ scan has revealed intermediate to high probability of PE. Patient follows with Dr. Villanueva, he is being worked up for ongoing shortness of breath. Patient states that he had a stress test done and it was negative recently. So eventually he went to get a VQ scan that was intermediate to high probability of PE. He also had bilateral lower extremity Doppler that was negative for DVT. I On review of systems patient denies having any fevers chills or rigors. Most recent sick contacts. No lower extremity swelling. No orthopnea or PND. No abdominal pain nausea vomiting or diarrhea. No dysuria or hematuria. Patient states that he had history of DVT after the right partial nephrectomy secondary to right renal cell carcinoma. Patient was not taking any anticoagulation at home. In the ER patient had blood work done showing a white count of 6.2, hemoglobin 17.4, platelets 165. Sodium 141, temperature <106, bicarbonate 24, BUN 19, c reatinine 1.02. Magnesium 1.5. AST 41, ALT 30.COVID 19 - negative. Patient was started on IV heparin and admitted for further management. Next day the patient was transitioned to Eliquis 10 mg twice a day. Patient received 2 doses of Eliquis , then his IV heparin has been discontinued. Patient is advised to take Eiquis 10 mg twice a day for 7 days and then transition to 5 mg twice a day. I discussed with him in detail about the side effects of anticoagulation, and advised to seek immediate medical attention if he notices any signs of bleeding. Patient was also started on Catapres 0.2 mg twice a day, that he was not taking at home as it was recently prescribed and his blood pressure has been high in the hospital. So patient is being discharged home after being cleared by cardiology. PHYSICAL EXAM Vitals: Temperature 97.5, heart rate 60, respiratory 20, blood pressure 03/22/2017 and saturating at 90 % on room air GENERAL: The patient is alert and oriented x3, not in any acute distress. Well developed, well nourished. HEENT: Pupils are round and equally reacting to light. EOMI. No scleral icterus. No conjunctival pallor. Normocephalic, atraumatic. No pharyngeal erythema. CARDIOVASCULAR: S1 and S2 present. Loud P2. PULMONARY: Chest is clear to auscultation, no wheezing or crackles. ABDOMEN: Soft, nontender, nondistended, normoactive bowel sounds. No palpable organomegaly. MUSCULOSKELETAL: No joint swelling or deformity. EXTREMITIES: No cyanosis, clubbing, or pedal edema. NEUROLOGICAL: Gross neurological examination did not reveal any focal deficits. SKIN: No rashes DISCHARGE DIAGNOSIS Moderate to high probability of PE on VQ scan Exertional dyspnea for 6 months Hypomagnesemia History of DVT not on anticoagulation History of right renal cell carcinoma Status post right partial nephrectomy Severe pulmonary hypertension COPD Hypertension Hyperlipidemia Former smoker Obstructive sleep apnea Morbid obesity with BMI of 42.9 Follow-up: Patient is advised to take Eliquis 10 mg twice a day for 7 days and thereafter 5 mg twice a day. Also discussed with him the side effects of anticoagulation. He is advised to follow with cardiology within 1 week and his PCP in 2-3 days. More than 35 minutes spent towards the discharge of the patient. Plan - Discharge Summary Discharge Rx Participant: No New Discharge Prescriptions: New Apixaban [Eliquis Starter Pack (for VTE)] 0 mg PO DIRECTED 30 Days #1 pack cloNIDine HCL [Catapres] 0.2 mg PO BID tab Continue metFORMIN HCL [Glucophage] 500 mg PO BID amLODIPine BESYLATE 10 mg PO QAM Potassium Chloride ER [K-Dur 10] 10 meq PO BID Montelukast [Singulair] 10 mg PO HS Metoprolol Succinate [Toprol Xl] 100 mg PO BID lisinopriL [Zestril] 10 mg PO BID Budesonide/Formoterol Fumarate [Symbicort 160-4.5 Mcg Inhaler] 2 puff INHALATION RT-BID Pravastatin Sodium [Pravachol] 80 mg PO DAILY Albuterol Nebulized [Ventolin Nebulized] 2.5 mg INHALATION RT-QID PRN PRN Reason: Shortness Of Breath Omeprazole [PriLOSEC] 40 mg PO DAILY Omalizumab [Xolair] 150 mg SQ Q14D Albuterol Sulfate [Ventolin HFA] 2 puff INHALATION RT-Q4H PRN PRN Reason: Shortness Of Breath Furosemide [Lasix] 40 mg PO DAILY Discharge Medication List Budesonide/Formoterol Fumarate [Symbicort 160-4.5 Mcg Inhaler] 2 puff INHALATION RT-BID 04/15/18 [History] Metoprolol Succinate [Toprol Xl] 100 mg PO BID 04/15/18 [History] Montelukast [Singulair] 10 mg PO HS 04/15/18 [History] Potassium Chloride ER [K-Dur 10] 10 meq PO BID 04/15/18 [History] amLODIPine BESYLATE 10 mg PO QAM 04/15/18 [History] lisinopriL [Zestril] 10 mg PO BID 04/15/18 [History] metFORMIN HCL [Glucophage] 500 mg PO BID 04/15/18 [History] Albuterol Nebulized [Ventolin Nebulized] 2.5 mg INHALATION RT-QID PRN 05/03/20 [History] Pravastatin Sodium [Pravachol] 80 mg PO DAILY 05/03/20 [History] Albuterol Sulfate [Ventolin HFA] 2 puff INHALATION RT-Q4H PRN 05/18/20 [History] Apixaban [Eliquis Starter Pack (for VTE)] 0 mg PO DIRECTED 30 Days #1 pack 05/18/20 [Rx] Furosemide [Lasix] 40 mg PO DAILY 05/18/20 [History] Omalizumab [Xolair] 150 mg SQ Q14D 05/18/20 [History] Omeprazole [PriLOSEC] 40 mg PO DAILY 05/18/20 [History] cloNIDine HCL [Catapres] 0.2 mg PO BID tab 05/19/20 [Rx] Follow up Appointment(s)/Referral(s): Miguel Ángel Cordon DO [Primary Care Provider] - 05/23/20 11:20 am Harjeet Villanueva MD [STAFF PHYSICIAN] - 05/26/20 2:15 pm Patient Instructions/Handouts: Pulmonary Embolism (DC) Discharge Disposition: HOME SELF-CARE
== END 2020-05-19 18:36 | disposition home or self-care (01) | DRG 176 ==
LOC: EC 10:38 → 3SCARD 11:40
PROVIDERS: ADMIT Internal Medicine; ATTEND Internal Medicine
DX: I26.99 Other pulmonary embolism without acute cor pulmonale (principal); E89.6 Postprocedural adrenocortical (-medullary) hypofunction; Z68.41 Body mass index [BMI] 40.0-44.9, adult; I27.20 Pulmonary hypertension, unspecified; E66.01 Morbid (severe) obesity due to excess calories; E11.9 Type 2 diabetes mellitus without complications; J44.9 Chronic obstructive pulmonary disease, unspecified; Z20.822 Contact with and (suspected) exposure to COVID-19; I49.3 Ventricular premature depolarization; I10 Essential (primary) hypertension; E83.42 Hypomagnesemia; I08.1 Rheumatic disorders of both mitral and tricuspid valves; E78.5 Hyperlipidemia, unspecified; K21.9 Gastro-esophageal reflux disease without esophagitis; G47.33 Obstructive sleep apnea (adult) (pediatric); K57.90 Diverticulosis of intestine, part unspecified, without perforation or abscess without bleeding; Z79.51 Long term (current) use of inhaled steroids; Z79.84 Long term (current) use of oral hypoglycemic drugs; Z79.899 Other long term (current) drug therapy; Z86.718 Personal history of other venous thrombosis and embolism; Z86.711 Personal history of pulmonary embolism; Z90.5 Acquired absence of kidney; Z90.49 Acquired absence of other specified parts of digestive tract; Z98.42 Cataract extraction status, left eye; Z98.41 Cataract extraction status, right eye; Z96.652 Presence of left artificial knee joint; Z87.891 Personal history of nicotine dependence; Z85.528 Personal history of other malignant neoplasm of kidney; Z98.890 Other specified postprocedural states; Z88.8 Allergy status to other drugs, medicaments and biological substances; Z91.010 Allergy to peanuts
CPT/HCPCS: 36415; 80053; 83735; 84484; 85025; 85610; 85730; 87635; 93005; 94640; 94660; 99285

== ENCOUNTER → 2020-08-30 | Outpatient (CLI) | payer MEDICARE ==
--- NOTE | 2020-08-30 13:40 | CT ---
EXAMINATION TYPE: CT ChestAbdPelvis w con DATE OF EXAM: 08/30/2020 COMPARISON: CT April 26, 2020 and older studies HISTORY: Renal cell cancer. CT DLP: 2170 mGycm. Automated Exposure Control for Dose Reduction was Utilized. CONTRAST: CT scan of the thorax, abdomen and pelvis is performed with oral and with IV Contrast, patient inject ed with 100 mL of Isovue 300. FINDINGS: LUNGS: The lungs are grossly clear, there is no concerning new parenchymal mass or nodule identified. There is no pleural effusion or pneumothorax seen. The tracheobronchial tree is patent. MEDIASTINUM: There are no new or enlarging greater than 1 cm hilar or mediastinal lymph nodes. Small to moderate size pericardial effusion redemonstrated stable versus prior studies. No cardiomegaly. Pr ominent main pulmonary artery again seen. CT findings suggestive of underlying pulmonary artery hyper tension. OTHER: Small degree of bilateral retroareolar gynecomastia is noted. LIVER/GB: Gallbladder not visualized presumably surgically absent. Liver is diffusely low dense relat terry to spleen consistent with diffuse fatty infiltration. Prominent right hepatic lobe is redemonstra anai. PANCREAS: Mild to moderate generalized atrophy greatest in the proximal body redemonstrated. SPLEEN: Occasional calcification scattered out the spleen is redemonstrated. ADRENALS: Normal or abnormal right adrenal gland is not identified. Suspect surgical resection. KIDNEYS: Postsurgical change posteriorly mid to lower pole of the right kidney redemonstrated with ov al-shaped curvilinear soft tissue density that contains central fat. There is anterior inferior surgi ayaz clip redemonstrated. There is no new suspicious nodularity or enhancement identified. There is sy mmetric cortical medullary uptake and excretion without hydronephrosis seen bilaterally. No concernin g new solid or cystic renal masses are clearly present. Vague area of heterogeneous diminished enhanc ement posteriorly mid to lower pole of the left kidney axial image 76 series 3 remains present not si gnificantly changed from prior. Continued monitoring at this level is advised. Bladder not greatly di stended otherwise unremarkable. Retroaortic left renal vein which is normal variant. BOWEL: Oral contrast reaches level of cecum on current study. There is no suspicious small or large b owel dilatation. Some diverticula are seen in the left and sigmoid colon. Mild fecal prominence in th e sigmoid rectal colon. GENITAL ORGANS: Prostate gland within normal in size bulging on bladder base with central calcificati ons. LYMPH NODES: No new greater than 1cm abdominal or pelvic lymph nodes are appreciated. OSSEOUS STRUCTURES: Multilevel spurring in the thoracolumbar spine. Moderate narrowing of both hip shukri ints. OTHER: No significant additional abnormality is seen. IMPRESSION: Post treatment changes to the right kidney redemonstrated without evidence of new or recu rrent suspicious renal mass or new or enlarging adenopathy from most recent CTs.
== END | disposition home or self-care (01) ==
LOC: RADCTMAIN 09:48
PROVIDERS: ATTEND Internal Medicine Hematology & Oncology
DX: C64.1 Malignant neoplasm of right kidney, except renal pelvis (principal)
CPT/HCPCS: 82565; 84520; 71260; 74177; 36415; Q9967

== ENCOUNTER → 2021-02-27 | Outpatient (CLI) | payer MEDICARE ==
--- NOTE | 2021-02-27 13:31 | CT ---
EXAMINATION TYPE: CT chest wo con DATE OF EXAM: 02/27/2021 COMPARISON: CT 08/30/2020 HISTORY: ca f/u CT DLP: 677.4 mGycm. Automated Exposure Control for Dose Reduction was Utilized. TECHNIQUE: CT scan of the thorax is performed without IV contrast. FINDINGS: Lack of contrast could compromise sensitivity. LUNGS: The lungs are grossly clear, there is no concerning parenchymal mass or nodule identified. T here is no pleural effusion or pneumothorax seen. The tracheobronchial tree is patent. MEDIASTINUM: Lack of IV contrast is noted to limit evaluation for mediastinal and especially hilar ad enopathy. There are no definitive greater than 1 cm hilar or mediastinal lymph nodes. Prevascular nod es are again seen, there are calcified left hilar nodes. No cardiomegaly. Prominence of the pulmonar y artery may be indicative of pulmonary artery hypertension. There are coronary artery calcifications . Pericardial effusion is again noted and may be increased slightly in size. Ascending aorta shows b orderline increased in size although there is some motion present OTHER: Postop change at the posterior margin of the right kidney with probable fat pad which is again noted, right adrenal gland is not seen with certainty. At the site of the hypodense portion of the m idpole the left kidney there is a focal prominence now which was not seen on prior exam, increased at tenuation as compared to prior. Retroaortic left renal vein is noted Splenic granuloma are present. L iver shows low attenuation likely due to hepatic steatosis. There is thoracic spondylosis. IMPRESSION: Postop changes. Interval change in the appearance of the left kidney as described and is inadequately characterized. Noncontrast exam. Correlate for pulmonary artery hypertension. Old granul omatous disease.1 pericardial effusion has increased slightly in interval
== END | disposition home or self-care (01) ==
LOC: RADCTMAIN 11:37
PROVIDERS: ATTEND Internal Medicine Hematology & Oncology
DX: C64.1 Malignant neoplasm of right kidney, except renal pelvis (principal); I31.3 Pericardial effusion (noninflammatory)
CPT/HCPCS: 71250

== ENCOUNTER → 2021-02-28 | Outpatient (CLI) | payer MEDICARE ==
--- NOTE | 2021-03-01 02:40 | MR ---
EXAMINATION TYPE: MR abdomen wo/w con DATE OF EXAM: 02/28/2021 COMPARISON: CT scan 08/30/2020 HISTORY: Renal Cell CA, Check up. CONTRAST: Standard multiplanar, multisequence MRI departmental protocol images were obtained without contrast a nd with 13 mL intravenous Gadavist gadolinium contrast. Liver shows no focal defect. There is no pleural effusion. There is a moderate pericardial effusion. The bile ducts are not dilated. Spleen is intact. Kidneys have normal size. There is a 4 cm oval-shap ed fat signal mass on the posterior aspect of the right kidney. 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 Ther e is no evidence of a pancreatic mass. The stomach appears intact. There is no ascites. There is no e vidence of retroperitoneal adenopathy. There is a mixed signal rounded 3.5 cm mass in the posterior lateral aspect of the left kidney involv ing the cortex. This lesion has low signal on T2 images. Lesion appears slightly larger than the CT s can of 08/30/2020 and definitely larger than the CT scan of 10/27/2019. There is slight bulging of the la teral contour. There is no significant enhancement. There is flow signal and normal enhancement demon strated in the portal venous system as well as the inferior vena cava and the abdominal aorta. IMPRESSION: Fat signal mass posterior right kidney without change. This could be posttreatment changes or angiomy olipoma. Mixed predominantly low signal mass in the left kidney is slowly enlarging compared to previous CT sc ans and suspicious for tumor. Pericardial effusion.
== END | disposition home or self-care (01) ==
LOC: RADMRIMAIN 11:17
PROVIDERS: ATTEND Internal Medicine Hematology & Oncology
DX: C64.1 Malignant neoplasm of right kidney, except renal pelvis (principal)
CPT/HCPCS: 74183; A9585

== ENCOUNTER → 2021-04-06 | Outpatient (CLI) | payer MEDICARE ==
[2021-04-06 18:36] LABS: African American GFR (CKD) 62.8 (60.0-200.0); Anion Gap 12.2 mmol/L (10.00-18.00); BUN/Creat Ratio 13.23 Ratio (12.00-20.00); Blood Urea Nitrogen 17.6 mg/dL (9.0-27.0); Calcium 9.3 mg/dL (8.7-10.3); Carbon Dioxide 27.1 mmol/L (20.0-27.5); Magnesium 1.7 mg/dL (1.5-2.4); Non-African American GFR(CKD) 54.2 (60.0-200.0); Potassium 4.9 mmol/L (3.5-5.5); Total Protein 6.9 g/dL (6.2-8.2)
[2021-04-06 18:37] LABS: Albumin/Globulin Ratio 1.37 (1.60-3.17); Globulin 2.9 g/dL (1.6-3.3); Total Bilirubin 1.2 mg/dL (0.30-1.20)
== END | disposition home or self-care (01) ==
LOC: LABWHC1 11:17
PROVIDERS: ATTEND Internal Medicine
DX: I27.21 Secondary pulmonary arterial hypertension (principal)
CPT/HCPCS: 36415; 80053; 83735; 83880

== ENCOUNTER 2021-04-23 12:15 | Emergency (ER) | payer MEDICARE ==
[2021-04-23] MEDS ORDERED: ACETAMINOPHEN TAB 500 MG TAB PO STA (13:08)
--- NOTE | 2021-04-23 13:13 | ED ---
General Adult HPI - General Chief complaint: Extremity Problem,Nontraumatic Stated complaint: Rt Leg Pain/Swelling Time Seen by Provider: 04/23/21 12:51 Source: patient, family, RN notes reviewed Mode of arrival: ambulatory Limitations: no limitations - History of Present Illness Initial comments: Patient is a pleasant 71-year-old male presenting to the emergency Department with right leg discomfort. Onset of symptoms was close to 2 days ago. Discom fort is persistent and does increase somewhat with walking. Patient family has noticed a little bit of redness. Patient states he feels a little bit swollen. No fevers at home. Patient does have history of cellulitis previously. Patient does have history of previous blood clots and is on Eliquis for this. - Related Data Home Medications Medication Instructions Recorded Confirmed Budesonide/Formoterol Fumarate 2 puff INHALATION RT-BID 04/15/18 05/18/20 [Symbicort 160-4.5 Mcg Inhaler] Metoprolol Succinate [Toprol Xl] 100 mg PO BID 04/15/18 05/18/20 Montelukast [Singulair] 10 mg PO HS 04/15/18 05/18/20 Potassium Chloride ER [K-Dur 10] 10 meq PO BID 04/15/18 05/18/20 amLODIPine BESYLATE 10 mg PO QAM 04/15/18 05/18/20 lisinopriL [Zestril] 10 mg PO BID 04/15/18 05/18/20 metFORMIN HCL [Glucophage] 500 mg PO BID 04/15/18 05/18/20 Albuterol Nebulized [Ventolin 2.5 mg INHALATION RT-QID PRN 05/03/20 05/18/20 Nebulized] Pravastatin Sodium [Pravachol] 80 mg PO DAILY 05/03/20 05/18/20 Albuterol Sulfate [Ventolin HFA] 2 puff INHALATION RT-Q4H PRN 05/18/20 05/18/20 Furosemide [Lasix] 40 mg PO DAILY 05/18/20 05/18/20 Omalizumab [Xolair] 150 mg SQ Q14D 05/18/20 05/18/20 Omeprazole [PriLOSEC] 40 mg PO DAILY 05/18/20 05/18/20 Previous Rx's Medication Instructions Recorded Apixaban [Eliquis Starter Pack 0 mg PO DIRECTED 30 Days #1 pack 05/18/20 (for VTE)] cloNIDine HCL [Catapres] 0.2 mg PO BID tab 05/19/20 Cephalexin [Keflex] 500 mg PO QID #40 cap 04/23/21 Allergies Allergy/AdvReac Type Severity Reaction Status Date / Time peanut oil Allergy Anaphylaxis Verified 04/23/21 12:50 simvastatin [From Zocor] AdvReac muscle pain Verified 04/23/21 12:50 Review of Systems ROS Statement: Those systems with pertinent positive or pertinent negative responses have been documented in the HPI. ROS Other: All systems not noted in ROS Statement are negative. Constitutional: Denies: fever Eyes: Denies: eye pain ENT: Denies: ear pain Respiratory: Denies: cough, dyspnea Cardiovascular: Denies: chest pain Endocrine: Denies: fatigue Gastrointestinal: Denies: abdominal pain Genitourinary: Denies: dysuria Musculoskeletal: Denies: back pain Skin: Reports: as per HPI Neurological: Denies: headache Past Medical History Past Medical History: Asthma, Cancer, Diabetes Mellitus, Deep Vein Thrombosis (DVT), GERD/Reflux, Hypertension, Pulmonary Embolus (PE), Renal Disease, Sleep Apnea/CPAP/BIPAP Additional Past Medical History / Comment(s): diverticulosis, rt renal cell carcinoma, DVT left knee post op nephrectomy History of Any Multi-Drug Resistant Organisms: None Reported Past Surgical History: Cholecystectomy Additional Past Surgical History / Comment(s): partial rt nephrectomy, adrenal gland removed, colonoscopy, vaughn cataracts Past Anesthesia/Blood Transfusion Reactions: Unable to Obtain Additional Past Anesthesia/Blood Transfusion Reaction / Comment(s): unknown after kidney sx was in drug induced coma for one month Past Psychological History: No Psychological Hx Reported Smoking Status: Never smoker Past Alcohol Use History: None Reported Past Drug Use History: None Reported General Exam Limitations: no limitations General appearance: alert, in no apparent distress Head exam: Present: normocephalic Eye exam: Present: normal appearance Neck exam: Present: normal inspection Respiratory exam: Present: normal lung sounds bilaterally Cardiovascular Exam: Present: regular rate, normal rhythm GI/Abdominal exam: Present: soft. Absent: tenderness Extremities exam: Present: other (Right lower leg with mild anterior erythema and warmth. Minimal tenderness mid to lower leg anterior and lower leg posteriorly.) Neurological exam: Present: alert Psychiatric exam: Present: normal affect, normal mood Skin exam: Present: erythema Course Vital Signs 04/23/21 04/23/21 12:47 14:50 Temperature 100.8 F H 98.7 F Pulse Rate 74 68 Respiratory 20 18 Rate Blood Pressure 178/90 150/74 O2 Sat by Pulse 96 94 L Oximetry Medical Decision Making - Medical Decision Making Patient reevaluated and resting comfortably in bed. Patient and family updated on results and plan. - Lab Data Result diagrams: 04/23/21 13:23 04/23/21 13:23 Lab Results 04/23/21 04/23/21 04/23/21 Range/Units 13:23 13:23 13:23 WBC 8.7 (3.8-10.6) k/uL RBC 4.70 (4.30-5.90) m/uL Hgb 13.9 (13.0-17.5) gm/dL Hct 41.6 (39.0-53.0) % MCV 88.5 (80.0-100.0) fL MCH 29.6 (25.0-35.0) pg MCHC 33.4 (31.0-37.0) g/dL RDW 14.4 (11.5-15.5) % Plt Count 178 (150-450) k/uL MPV 7.5 Neutrophils % 78 % Lymphocytes % 12 % Monocytes % 7 % Eosinophils % 1 % Basophils % 0 % Neutrophils # 6.8 (1.3-7.7) k/uL Lymphocytes # 1.0 (1.0-4.8) k/uL Monocytes # 0.6 (0-1.0) k/uL Eosinophils # 0.1 (0-0.7) k/uL Basophils # 0.0 (0-0.2) k/uL PT 11.1 (9.0-12.0) sec INR 1.0 (<1.2) APTT 40.1 H (22.0-30.0) sec Sodium 139 (137-145) mmol/L Potassium 4.3 (3.5-5.1) mmol/L Chloride 101 (98-107) mmol/L Carbon Dioxide 32 H (22-30) mmol/L Anion Gap 6 mmol/L BUN 16 (9-20) mg/dL Creatinine 1.10 (0.66-1.25) mg/dL Est GFR (CKD-EPI)AfAm 79 (>60 ml/min/1.73 sqM) Est GFR (CKD-EPI)NonAf 68 (>60 ml/min/1.73 sqM) Glucose 102 H (74-99) mg/dL Plasma Lactic Acid Cezar (0.7-2.0) mmol/L Calcium 8.3 L (8.4-10.2) mg/dL Total Bilirubin 1.8 H (0.2-1.3) mg/dL AST 17 (17-59) U/L ALT 22 (4-49) U/L Alkaline Phosphatase 59 (38-126) U/L Total Protein 6.5 (6.3-8.2) g/dL Albumin 3.5 (3.5-5.0) g/dL 04/23/21 Range/Units 13:23 WBC (3.8-10.6) k/uL RBC (4.30-5.90) m/uL Hgb (13.0-17.5) gm/dL Hct (39.0-53.0) % MCV (80.0-100.0) fL MCH (25.0-35.0) pg MCHC (31.0-37.0) g/dL RDW (11.5-15.5) % Plt Count (150-450) k/uL MPV Neutrophils % % Lymphocytes % % Monocytes % % Eosinophils % % Basophils % % Neutrophils # (1.3-7.7) k/uL Lymphocytes # (1.0-4.8) k/uL Monocytes # (0-1.0) k/uL Eosinophils # (0-0.7) k/uL Basophils # (0-0.2) k/uL PT (9.0-12.0) sec INR (<1.2) APTT (22.0-30.0) sec Sodium (137-145) mmol/L Potassium (3.5-5.1) mmol/L Chloride (98-107) mmol/L Carbon Dioxide (22-30) mmol/L Anion Gap mmol/L BUN (9-20) mg/dL Creatinine (0.66-1.25) mg/dL Est GFR (CKD-EPI)AfAm (>60 ml/min/1.73 sqM) Est GFR (CKD-EPI)NonAf (>60 ml/min/1.73 sqM) Glucose (74-99) mg/dL Plasma Lactic Acid Cezar 1.6 (0.7-2.0) mmol/L Calcium (8.4-10.2) mg/dL Total Bilirubin (0.2-1.3) mg/dL AST (17-59) U/L ALT (4-49) U/L Alkaline Phosphatase (38-126) U/L Total Protein (6.3-8.2) g/dL Albumin (3.5-5.0) g/dL - Radiology Data Radiology results: report reviewed (Ultrasound negative for DVT), image reviewed (X-ray shows some edema. No fracture) Disposition Clinical Impression: Cellulitis of right lower extremity Disposition: HOME SELF-CARE Condition: Stable Instructions (If sedation given, give patient instructions): Cellulitis (ED) Additional Instructions: Please do follow-up with primary care physician in the next couple days for recheck. Return for fevers, increased swelling, pain, redness, worsening symptoms or other concerns. Prescription for antibiotics has been sent to pharmacy. Prescriptions: Cephalexin [Keflex] 500 mg PO QID #40 cap Is patient prescribed a controlled substance at d/c from ED?: No Referrals: Miguel Ángel Cordon DO [Primary Care Provider] - 1-2 days Time of Disposition: 14:58
[2021-04-23 13:46] LABS: Basophils % (A) 0 %; Eosinophils # (A) 0.1 k/uL (0-0.7); Eosinophils % (A) 1 %; HCT 41.6 % (39.0-53.0); HGB 13.9 gm/dL (13.0-17.5); Lymphocytes % (A) 12 %; MCH 29.6 pg (25.0-35.0); MCHC 33.4 g/dL (31.0-37.0); MCV 88.5 fL (80.0-100.0); Mean Platelet Volume 7.5; Monocytes # (A) 0.6 k/uL (0-1.0); Monocytes % (A) 7 %; Neutrophils # (A) 6.8 k/uL (1.3-7.7); Neutrophils % (A) 78 %; Platelet Count 178 k/uL (150-450); RDW 14.4 % (11.5-15.5); WBC 8.7 k/uL (3.8-10.6)
[2021-04-23 14:00] LABS: Albumin 3.5 g/dL (3.5-5.0); Calcium 8.3 mg/dL (8.4-10.2); Potassium 4.3 mmol/L (3.5-5.1); Total Bilirubin 1.8 mg/dL (0.2-1.3); Total Protein 6.5 g/dL (6.3-8.2)
--- NOTE | 2021-04-23 14:02 | XR ---
EXAMINATION TYPE: XR tibia fibula RT DATE OF EXAM: 04/23/2021 COMPARISON: 07/18/2016 HISTORY: Cellulitis TECHNIQUE: 4 views FINDINGS: There is soft tissue swelling in the subcutaneous tissues around the lower leg. The knee shukri int appears intact. Ankle joint is intact. There is calcification at the distal fibula consistent wit h an old injury. There is narrowing of the medial joint space of the knee. IMPRESSION: Subcutaneous edema appears increased compared to old exam. Osteoarthritis. No fracture se en.
[2021-04-23 14:05] LABS: Partial Thromboplastin Time 40.1 sec (22.0-30.0); Prothrombin Time 11.1 sec (9.0-12.0)
--- NOTE | 2021-04-23 14:35 | US ---
EXAMINATION TYPE: US venous doppler duplex LE RT DATE OF EXAM: 04/23/2021 2:19 PM COMPARISON: NONE CLINICAL HISTORY: swelling. edema SIDE PERFORMED: Right TECHNIQUE: The lower extremity deep venous system is examined utilizing real time linear array sonog diana with graded compression, doppler sonography and color-flow sonography. VESSELS IMAGED: Common Femoral Vein Deep Femoral Vein Greater Saphenous Vein * Femoral Vein Popliteal Vein Small Saphenous Vein * Proximal Calf Veins (* superficial vessels) Right Leg: Negative for DVT IMPRESSION: No evidence of deep vein thrombosis in the right leg.
[2021-04-23 14:54] VITALS: BP 150/74; PULSE 68; RESP 18
[2021-04-23 14:57] VITALS: TEMP 98.7
== END 2021-04-23 15:12 | disposition home or self-care (01) ==
LOC: EC 12:15
DX: L03.115 Cellulitis of right lower limb (principal); E11.9 Type 2 diabetes mellitus without complications; K21.9 Gastro-esophageal reflux disease without esophagitis; I10 Essential (primary) hypertension; Z88.8 Allergy status to other drugs, medicaments and biological substances; Z91.010 Allergy to peanuts; Z79.83 Long term (current) use of bisphosphonates
CPT/HCPCS: 36415; 80053; 83605; 85025; 85610; 85730; 87040; 73590; 93971; 99284; 96365; J0696

== ENCOUNTER → 2021-08-29 | Outpatient (CLI) | payer MEDICARE ==
--- NOTE | 2021-08-29 08:28 | CT ---
EXAMINATION TYPE: CT chest wo con DATE OF EXAM: 08/29/2021 COMPARISON: 02/27/2021 HISTORY: Renal ca, observe for mets CT DLP: 680.[address] of the chest was performed with lung and mediastinal window settings submitted. The la ck of contrast limits evaluation of the vascular, mediastinal and parenchymal structures including th e upper abdomen. LUNGS: The lungs are clear and free of infiltrate. No atelectasis. Scattered calcified granulomas. No pulmonary nodule or mass is detected. No pleural effusion. No CT evidence of interstitial lung dis ease. MEDIASTINUM/FLORECITA: Thoracic aorta is of normal caliber with limited evaluation given lack of contrast . The heart is mildly enlarged. Pericardial effusion is unchanged. No evidence for mediastinal mass. No lymph nodes greater than 1cm. UPPER ABDOMEN: Postoperative changes right kidney. Slightly hyperdense mass lesion is partially image d left mid kidney and is not appropriately characterized on this examination. Cholecystectomy changes . OTHER: No significant other abnormality. IMPRESSION: 1. Remote granulomatous disease without evidence of suspicious pulmonary nodules at this time. 2. Postoperative changes right kidney. Partially imaged masslike area left mid kidney is not appropri ately characterized on this study. 3. Stable pericardial effusion.
--- NOTE | 2021-08-29 18:39 | MR ---
MR abdomen with and without contrast HISTORY: Renal cell carcinoma, C 64.1, Z03.89 Multiplanar multisequence and postcontrast images through the abdomen following 14 cc Gadavist IV. Correlation to prior MR abdomen 02/28/2021, CT 08/30/2020 The postop changes seen posterior to the right kidney show a similar appearance. Right kidney shows a stable appearance with some associated cortical cysts. There is no retroperitoneal adenopathy. Retro caval aortic left renal vein is noted. The left kidney also shows a nearly stable appearance. Heterogeneous signal present within the left r enal mass is again seen, precontrast T1-weighted images show heterogeneous areas of increased signal with possible septations, postcontrast images do not show significant enhancement, T2-weighted sequen thuy again show low signal within this mass, there may be minimal growth from approximately 3.9 to 4.1 cm in greatest AP dimension, similar-appearing smaller lesion present in the upper pole the left kid mihir is noted. The mass is circumscribed and extends from the cortex towards the renal pelvis The liver shows no mass. Lung bases show no pleural effusion. Pericardial effusion shows a maximal di ameter of approximately 2.5 cm. Spleen is stable. Pancreas is unremarkable. Aorta shows normal calibe r. IMPRESSION: Pericardial effusion. Postop changes to the right kidney. Left renal mass could represent proteinaceous cyst rather than malignancy but is indeterminate, minimal interval growth, consider ad ditional follow-up
== END | disposition home or self-care (01) ==
LOC: RADMRIMAIN 07:23
PROVIDERS: ATTEND Internal Medicine Hematology & Oncology
DX: Z03.89 Encounter for observation for other suspected diseases and conditions ruled out (principal); C64.1 Malignant neoplasm of right kidney, except renal pelvis
CPT/HCPCS: 71250; 74183; A9585

== ENCOUNTER → 2021-11-20 | Outpatient (CLI) | payer MEDICARE ==
[2021-11-20 17:05] LABS: Partial Thromboplastin Time 40.9 sec (22.0-30.0); Prothrombin Time 10.6 sec (9.0-12.0)
[2021-11-21 00:40] LABS: African American GFR (CKD) 38.6 (60.0-200.0); Anion Gap 18.6 mmol/L (10.00-18.00); Blood Urea Nitrogen 38.5 mg/dL (9.0-27.0); Carbon Dioxide 21.2 mmol/L (20.0-27.5); Non-African American GFR(CKD) 33.3 (60.0-200.0); Potassium 4.4 mmol/L (3.5-5.5)
== END | disposition home or self-care (01) ==
LOC: LABWHC1 16:25
PROVIDERS: ATTEND Thoracic Surgery (Cardiothoracic Vascular Surgery)
DX: Z01.812 Encounter for preprocedural laboratory examination (principal); Z01.818 Encounter for other preprocedural examination; I31.3 Pericardial effusion (noninflammatory)
CPT/HCPCS: 36415; 80051; 82565; 82947; 84520; 85610; 85730; 86850; 86900; 86901

== ENCOUNTER → 2022-07-17 | Outpatient (CLI) | payer MEDICARE ==
--- NOTE | 2022-07-17 16:12 | XR ---
EXAMINATION TYPE: XR chest 2V DATE OF EXAM: 07/17/2022 3:10 PM COMPARISON: Chest radiographs from 05/17/2020 TECHNIQUE: XR chest 2V Frontal and lateral views of the chest. CLINICAL INDICATION:Male, 72 years old with history of R0602 SOB; FINDINGS: Lungs/Pleura: Blunting of left costophrenic angle There is flattening of the diaphragm with increased lucency of the lungs. No evidence of pneumothorax, pleural effusion or focal consolidation. Pulmonary vascularity: Pulmonary vascular congestion. Heart/mediastinum: Cardiomediastinal silhouette is prominent in size. Musculoskeletal: No acute osseous pathology. IMPRESSION: Left pleural effusion with hepatomegaly. Correlate for congestive heart failure.
== END | disposition home or self-care (01) ==
LOC: RADXRYALE 14:57
PROVIDERS: ATTEND Family Medicine
DX: J90 Pleural effusion, not elsewhere classified (principal); I50.9 Heart failure, unspecified; R06.02 Shortness of breath; R16.0 Hepatomegaly, not elsewhere classified
CPT/HCPCS: 71046

== ENCOUNTER → 2022-08-16 | Outpatient (CLI) | payer MEDICARE ==
--- NOTE | 2022-08-17 08:35 | XR ---
EXAMINATION TYPE: XR chest 2V DATE OF EXAM: 08/16/2022 COMPARISON: 07/17/2022 TECHNIQUE: PA and lateral views submitted. HISTORY: Shortness of breath FINDINGS: Stable left-sided consolidation and small effusion. Heart size mildly enlarged but there is no overt failure. Osseous structures demonstrate hypertrophic and degenerative changes of the spine. Prominenc e of the pulmonary arteries could reflect pulmonary arterial hypertension. IMPRESSION: 1. Stable left lower lobe infiltrate and small effusion.
== END | disposition home or self-care (01) ==
LOC: RADXRYALE 15:04
PROVIDERS: ATTEND Physician Assistant
DX: J90 Pleural effusion, not elsewhere classified (principal); R06.02 Shortness of breath; R91.8 Other nonspecific abnormal finding of lung field
CPT/HCPCS: 71046

== ENCOUNTER 2022-08-17 10:32 | Observation (INO) | payer MEDICARE ==
--- NOTE | 2022-08-17 11:19 | ED ---
General Adult HPI - General Chief complaint: Chest Pain Stated complaint: SOB Time Seen by Provider: 08/17/22 10:47 Source: patient Mode of arrival: EMS Limitations: no limitations - History of Present Illness Initial comments: Dictation was produced using Present dictation software. please excuse any grammatical, word or spelling errors. Chief Complaint: 72-year-old male presents to the emergency department for pleural effusion History of Present Illness: 72-year-old male with past medical history of pericardial effusion complicated by postoperative complications. States that satisfactory care physician's office yesterday for shortness of breath. He had an x-ray done at the primary care physician's office and was told that he should come to the emergency department because of "white out of the right lung." Patient has any fever. Shortness of breath feels slightly worse when he lies flat however doesn't feel as bad whenever he tries to lift his head supine position. Patient was not told why he had pericardial effusion in the past. Denies any coughing. The ROS documented in this emergency department record has been reviewed and confirmed by me. Those systems with pertinent positive or negative responses have been documented in the HPI. All other systems are other negative and/or noncontributory. - Related Data Home Medications Medication Instructions Recorded Confirmed Montelukast [Singulair] 10 mg PO HS 04/15/18 08/17/22 amLODIPine BESYLATE 10 mg PO DAILY 04/15/18 08/17/22 Pravastatin Sodium [Pravachol] 80 mg PO DAILY 05/03/20 08/17/22 Omeprazole [PriLOSEC] 40 mg PO DAILY 05/18/20 08/17/22 Apixaban [Eliquis] 5 mg PO BID 08/17/22 08/17/22 Bumetanide [BUMEX] 2 mg PO BID 08/17/22 08/17/22 Treprostinil Diolamine [Orenitram 1 mg PO TID 08/17/22 08/17/22 ER] Treprostinil Diolamine [Orenitram 2.5 mg PO TID 08/17/22 08/17/22 ER] Allergies Allergy/AdvReac Type Severity Reaction Status Date / Time peanut oil Allergy Anaphylaxis Verified 08/17/22 12:05 simvastatin [From Zocor] AdvReac muscle pain Verified 08/17/22 12:05 Review of Systems ROS Statement: Those systems with pertinent positive or pertinent negative responses have been documented in the HPI. ROS Other: All systems not noted in ROS Statement are negative. Past Medical History Past Medical History: Asthma, Cancer, Diabetes Mellitus, Deep Vein Thrombosis (DVT), GERD/Reflux, Hypertension, Pulmonary Embolus (PE), Renal Disease, Sleep Apnea/CPAP/BIPAP Additional Past Medical History / Comment(s): diverticulosis, rt renal cell carcinoma, DVT left knee post op nephrectomy History of Any Multi-Drug Resistant Organisms: None Reported Past Surgical History: Cholecystectomy Additional Past Surgical History / Comment(s): partial rt nephrectomy, adrenal gland removed, colonoscopy, vaughn cataracts Past Anesthesia/Blood Transfusion Reactions: Unable to Obtain Additional Past Anesthesia/Blood Transfusion Reaction / Comment(s): unknown after kidney sx was in drug induced coma for one month Past Psychological History: No Psychological Hx Reported Smoking Status: Never smoker Past Alcohol Use History: None Reported Past Drug Use History: None Reported General Exam - General Exam Comments Initial Comments: PHYSICAL EXAM: General Impression: Alert and oriented x3, not in acute distress HEENT: Normocephalic atraumatic, extra-ocular movements intact, pupils equal and reactive to light bilaterally, mucous membranes moist. Cardiovascular: Heart regular rate and rhythm Chest: Able to complete full sentences, no retractions, no tachypnea Abdomen: abdomen soft, non-tender, non-distended, no organomegaly Musculoskeletal: Pulses present and equal in all extremities, no peripheral edema Motor: no focal deficits noted Neurological: CN II-XII grossly intact, no focal motor or sensory deficits noted Skin: Intact with no visualized rashes Psych: Normal affect and mood Limitations: no limitations Course Vital Signs 08/17/22 10:44 Temperature 98.0 F Pulse Rate 96 Respiratory 19 Rate Blood Pressure 132/62 O2 Sat by Pulse 92 L Oximetry Medical Decision Making - Medical Decision Making Was pt. sent in by a medical professional or institution (, PA, COOLER ROOM WORKER, urgent care, hospital, or fdc...) When possible be specific @ -Sent in by primary care physician Did you speak to anyone other than the patient for history (EMS, parent, family, police, friend...)? What history was obtained from this source @ -No Did you review nursing and triage notes (agree or disagree)? Why? @ -I reviewed and agree with nursing and triage notes Were old charts reviewed (outside hosp., previous admission, EMS record, old EKG, old radiological studies, urgent care reports/EKG's, fdc records)? Report findings @ -No old charts were reviewed Differential Diagnosis (chest pain, altered mental status, abdominal pain women, abdominal pain men, vaginal bleeding, musculoskeletal, weakness, fever, dyspnea, syncope, headache, dizziness, GI bleed, back pain, seizure, CVA, palpatations, mental health)? @ -Differential Dyspnea: Coronary syndrome, arrhythmia, tamponade, asthma, COPD, pulmonary embolism, pneumonia, pneumothorax, pulmonary effusion, anaphylaxis, diabetic ketoacidosis, flailed chest, pulmonary contusion, diaphragmatic rupture, anemia, neur omuscular, this is not meant to be an all-inclusive list. EKG interpreted by me (3pts min.). @ -My EKG interpretation: Ventricular rate 92, sinus rhythm,. 196, QRS saline, QTC 340. No NJ prolongation, no QTC prolongation, no ST or T-wave changes noted. Overall, this EKG is unremarkable X-rays interpreted by me (1pt min.). @ -Chest x-ray shows left-sided pleural effusion. X-ray was compared to x-ray from last month showing accumulation CT interpreted by me (1pt min.). @ -None done U/S interpreted by me (1pt. min.). @ -None done What testing was considered but not performed or refused? (CT, X-rays, U/S, labs)? Why? @ -None What meds were considered but not given or refused? Why? @ -None Did you discuss the management of the patient with other professionals (professionals i.e. , PA, COOLER ROOM WORKER, lab, RT, psych nurse, rn social services, stem mounter, teacher, operations officer afloat, case management assistant)? Give summary @ -No Was smoking cessation discussed for >3mins.? @ -No Was critical care preformed (if so, how long)? @ -No Were there social determinants of health that impacted care today? How? (Homelessness, low income, unemployed, alcoholism, drug addiction, transportation, low edu. Level, literacy, decrease access to med. care, fpc, rehab)? @ -No Was there de-escalation of care discussed even if they declined (Discuss DNR or withdrawal of care, Hospice)? DNR status @ -No What co-morbidities impacted this encounter? (DM, HTN, Smoking, COPD, CAD, Cancer, CVA, ARF, Chemo, Hep., AIDS, mental health diagnosis, sleep apnea, morbid obesity)? @ -None Was patient admitted / discharged? Hospital course, mention meds given and route, prescriptions, significant lab abnormalities, going to OR and other pertinent info. @ -72-year-old male presents emergency department for dyspnea. He had a outpatient x-ray that she'll pleural effusion. Decided to wait until today to the ER. Stable effusion. Patient would benefit from inpatient [facility] for thoracentesis further evaluation. Patient is agreeable with admission. Pulmonology will be consulted. Undiagnosed new problem with uncertain prognosis? @ -No Drug Therapy requiring intensive monitoring for toxicity (Heparin, Nitro, Insulin, Cardizem)? @ -No Were any procedures done? @ -No Diagnosis/symptom? Acute, or Chronic, or Acute on Chronic? Uncomplicated (without systemic symptoms) or Complicated (systemic symptoms)? @ -1. Pleural effusion, complicated by dyspnea Side effects of treatment? @ -No Exacerbation, Progression, or Severe Exacerbation? @ -No Poses a threat to life or bodily function? How? (Chest pain, USA, ND, pneumonia, PE, COPD, DKA, ARF, appy, cholecystitis, CVA, Diverticulitis, Homicidal, Suicidal, threat to staff... and all critical care pts) @ -yes - Lab Data Result diagrams: 08/17/22 11:43 08/17/22 11:43 Lab Results 08/17/22 08/17/22 08/17/22 Range/Units 11:43 11:43 11:43 WBC 10.7 H (3.8-10.6) k/uL RBC 4.14 L (4.30-5.90) m/uL Hgb 11.9 L (13.0-17.5) gm/dL Hct 35.3 L (39.0-53.0) % MCV 85.2 (80.0-100.0) fL MCH 28.7 (25.0-35.0) pg MCHC 33.6 (31.0-37.0) g/dL RDW 16.4 H (11.5-15.5) % Plt Count 291 (150-450) k/uL MPV 7.4 Neutrophils % 85 % Lymphocytes % 7 % Monocytes % 5 % Eosinophils % 3 % Basophils % 0 % Neutrophils # 9.0 H (1.3-7.7) k/uL Lymphocytes # 0.7 L (1.0-4.8) k/uL Monocytes # 0.5 (0-1.0) k/uL Eosinophils # 0.3 (0-0.7) k/uL Basophils # 0.0 (0-0.2) k/uL Anisocytosis Slight PT 11.1 (9.0-12.0) sec INR 1.1 (<1.2) APTT 52.6 H (22.0-30.0) sec Sodium 136 L (137-145) mmol/L Potassium 4.2 (3.5-5.1) mmol/L Chloride 96 L (98-107) mmol/L Carbon Dioxide 25 (22-30) mmol/L Anion Gap 15 mmol/L BUN 80 H (9-20) mg/dL Creatinine 3.41 H (0.66-1.25) mg/dL Est GFR (CKD-EPI)AfAm 20 (>60 ml/min/1.73 sqM) Est GFR (CKD-EPI)NonAf 17 (>60 ml/min/1.73 sqM) Glucose 149 H (74-99) mg/dL Plasma Lactic Acid Cezar (0.7-2.0) mmol/L Calcium 9.0 (8.4-10.2) mg/dL Magnesium 2.4 H (1.6-2.3) mg/dL Troponin I (0.000-0.034) ng/mL NT-Pro-B Natriuret Pep pg/mL 08/17/22 08/17/22 08/17/22 Range/Units 11:43 11:43 11:43 WBC (3.8-10.6) k/uL RBC (4.30-5.90) m/uL Hgb (13.0-17.5) gm/dL Hct (39.0-53.0) % MCV (80.0-100.0) fL MCH (25.0-35.0) pg MCHC (31.0-37.0) g/dL RDW (11.5-15.5) % Plt Count (150-450) k/uL MPV Neutrophils % % Lymphocytes % % Monocytes % % Eosinophils % % Basophils % % Neutrophils # (1.3-7.7) k/uL Lymphocytes # (1.0-4.8) k/uL Monocytes # (0-1.0) k/uL Eosinophils # (0-0.7) k/uL Basophils # (0-0.2) k/uL Anisocytosis PT (9.0-12.0) sec INR (<1.2) APTT (22.0-30.0) sec Sodium (137-145) mmol/L Potassium (3.5-5.1) mmol/L Chloride (98-107) mmol/L Carbon Dioxide (22-30) mmol/L Anion Gap mmol/L BUN (9-20) mg/dL Creatinine (0.66-1.25) mg/dL Est GFR (CKD-EPI)AfAm (>60 ml/min/1.73 sqM) Est GFR (CKD-EPI)NonAf (>60 ml/min/1.73 sqM) Glucose (74-99) mg/dL Plasma Lactic Acid Cezar 1.2 (0.7-2.0) mmol/L Calcium (8.4-10.2) mg/dL Magnesium (1.6-2.3) mg/dL Troponin I 0.022 (0.000-0.034) ng/mL NT-Pro-B Natriuret Pep 2100 pg/mL Disposition Clinical Impression: Pleural effusion Disposition: ADMITTED IP TO THIS HOSP Condition: Fair Referrals: Tenisha Salgado, GINA [REFERRING] - 1-2 days Decision Time: 14:34
[2022-08-17 12:02] LABS: Anisocytosis Slight; Basophils % (A) 0 %; Eosinophils # (A) 0.3 k/uL (0-0.7); Eosinophils % (A) 3 %; HCT 35.3 % (39.0-53.0); HGB 11.9 gm/dL (13.0-17.5); Lymphocytes # (A) 0.7 k/uL (1.0-4.8); Lymphocytes % (A) 7 %; MCH 28.7 pg (25.0-35.0); MCHC 33.6 g/dL (31.0-37.0); MCV 85.2 fL (80.0-100.0); Mean Platelet Volume 7.4; Monocytes # (A) 0.5 k/uL (0-1.0); Monocytes % (A) 5 %; Neutrophils % (A) 85 %; Platelet Count 291 k/uL (150-450); RBC 4.14 m/uL (4.30-5.90); RDW 16.4 % (11.5-15.5); WBC 10.7 k/uL (3.8-10.6)
--- NOTE | 2022-08-17 12:18 | XR ---
EXAMINATION TYPE: XR chest 2V DATE OF EXAM: 08/17/2022 COMPARISON: 08/16/2022 TECHNIQUE: PA and lateral views submitted. HISTORY: Shortness of breath FINDINGS: Left pleural consolidation and moderate pleural effusion. Right lung is clear. Heart is enlarged. No overt failure or pneumothorax. There is arthropathy of the shoulders. Findings compatible with DISH. IMPRESSION: 1. Stable left-sided consolidation and moderate pleural effusion.
[2022-08-17 12:30] LABS: African American GFR (CKD) 20 (>60 ml/min/1.73 sqM); Anion Gap 15 mmol/L; Blood Urea Nitrogen 80 mg/dL (9-20); Carbon Dioxide 25 mmol/L (22-30); Chloride 96 mmol/L (98-107); Glucose 149 mg/dL (74-99); Magnesium 2.4 mg/dL (1.6-2.3); Non-African American GFR(CKD) 17 (>60 ml/min/1.73 sqM); Potassium 4.2 mmol/L (3.5-5.1); Sodium 136 mmol/L (137-145)
[2022-08-17 13:38] LABS: INR 1.1 (<1.2); Partial Thromboplastin Time 52.6 sec (22.0-30.0); Prothrombin Time 11.1 sec (9.0-12.0)
[2022-08-17] MEDS ORDERED: NALOXONE 0.4 MG/ML 1 ML VIAL IV PRN (15:27)
--- NOTE | 2022-08-17 16:00 | US ---
EXAMINATION TYPE: US chest DATE OF EXAM: 08/17/2022 COMPARISON: NONE CLINICAL INDICATION: Male, 72 years old with history of effusion, left, possible thora; Pleural effus ion TECHNIQUE: Targeted ultrasound of the posterior lower bilateral hemithoraces EXAM MEASUREMENTS: Left Pleural Effusion pocket size: 12.7 cm Left skin surface to fluid distance: 2.3 cm Left side marked for possible thoracentesis outside the dept. Pulmonologists are able to review the images in the patient?s EMR. IMPRESSIONS: Large left pleural effusion.
[2022-08-17] MEDS: SODIUM CHLORIDE 0.9% 1,000 ML IV SCH (16:07)
--- NOTE | 2022-08-17 17:36 | P.HPIM ---
History of Present Illness H&P Date: 08/17/22 Patient is a 72-year-old male with history of hypertension, dyslipidemia, asthma/COPD, DVT/PE, pulmonary hypertension, JUWAN, right renal cell carcinoma status post right partial nephrectomy presenting today from PCP office. He was complaining of shortness of breath. He has a history of left pleural effusion recently. He was treated for presumed pneumonia, but without any significant resolution. His dyspnea continued to get worse, he then decided to come to the hospital. Currently complaining of fevers and chills, occasional bandlike chest pain throughout his chest, productive cough, no wheezing, no significant orthopnea. He does have lower extremity swelling. He denies any recent travel history or sick contacts. Due to his renal cell cancer, he has been dealing with multiple renal issues, was on dialysis briefly at the beginning of this year. It has since been dis continued about 2 months ago, and currently making good amounts of urine. In the ED, temperature was 98, pulse 96, respiratory rate 19, blood pressure 132/62, saturating at 92% on room air. Chest x-ray shows left-sided consolidation/pleural effusion. EKG shows normal sinus rhythm. Chest ultrasou nd shows large left pleural effusion. WBC was 10.7, hemoglobin 11.9, sodium 136, chloride 96, BUN 80, creatinine 3.41, baseline 1 year ago was 1.5. Troponin negative. ProBNP 2100. Patient admitted for acute dyspnea secondary to pleural effusion, possible CHF exacerbation. Pertinent positives and negatives as discussed in HPI, a complete review of systems was performed and all other systems are negative. Patient seen and examined at bedside. Vital signs reviewed General: nontoxic, no distress, appears at stated age Derm: warm, dry Head: atraumatic, normocephalic, symmetric Eyes: EOMI, no lid lag, anicteric sclera, pupils equal round reactive to light ENT: Nose and ears atraumatic Neck: No thyromegaly, supple Mouth: no lip lesion, mucus membranes moist Cardiovascular: S1S2 reg, no murmur, no edema Lungs: clear to auscultation bilateral, no rhonchi, no rales, no wheeze, no accessory muscle use Abdominal: soft, nontender to palpation, no guarding, no appreciable organomegaly Ext: no gross muscle atrophy, muscle strength muscle strength 5 out of 5 in all 4 extremities, no contractures Neuro: CN II-XII grossly intact Psych: Alert, oriented, appropriate affect Assessment/Plan: Active: Left-sided pleural effusion Suspected CHF exacerbation, unknown if diastolic or systolic Pulmonary hypertension Chronic renal failure History of right renal cell carcinoma status post right partial nephrectomy, recent dialysis -Patient would need a diagnostic thoracentesis -Pulmonology consulted -Hold Eliquis -Echocardiogram ordered -Continue oral Bumex -Continue to trend creatinine Chronic: Hypertension DVT/PE Asthma/COPD Dyslipidemia The patient is admitted with an anticipated less than 2 midnight stay as observation status for evaluation of left pleural effusion. Surrogate decision-maker: Significant other CODE STATUS: Full code DVT prophylaxis: SCDs Anticipated discharge date: 1-[address]: Home A total of 55 minutes was spent on the care of this complex patient more than 50% of the time was spent in counseling and care coordination. Past Medical History Past Medical History: Asthma, Cancer, Diabetes Mellitus, Deep Vein Thrombosis (DVT), GERD/Reflux, Hypertension, Pulmonary Embolus (PE), Renal Disease, Sleep Apnea/CPAP/BIPAP Additional Past Medical History / Comment(s): diverticulosis, rt renal cell carcinoma, DVT left knee post op nephrectomy History of Any Multi-Drug Resistant Organisms: None Reported Past Surgical History: Cholecystectomy Additional Past Surgical History / Comment(s): partial rt nephrectomy, adrenal gland removed, colonoscopy, vaughn cataracts Past Anesthesia/Blood Transfusion Reactions: Unable to Obtain Additional Past Anesthesia/Blood Transfusion Reaction / Comment(s): unknown after kidney sx was in drug induced coma for one month Past Psychological History: No Psychological Hx Reported Smoking Status: Never smoker Past Alcohol Use History: None Reported Past Drug Use History: None Reported Medications and Allergies Home Medications Medication Instructions Recorded Confirmed Type Montelukast [Singulair] 10 mg PO HS 04/15/18 08/17/22 History amLODIPine BESYLATE 10 mg PO DAILY 04/15/18 08/17/22 History Pravastatin Sodium [Pravachol] 80 mg PO DAILY 05/03/20 08/17/22 History Omeprazole [PriLOSEC] 40 mg PO DAILY 05/18/20 08/17/22 History Apixaban [Eliquis] 5 mg PO BID 08/17/22 08/17/22 History Bumetanide [BUMEX] 2 mg PO BID 08/17/22 08/17/22 History Treprostinil Diolamine [Orenitram 1 mg PO TID 08/17/22 08/17/22 History ER] Treprostinil Diolamine [Orenitram 2.5 mg PO TID 08/17/22 08/17/22 History ER] Allergies Allergy/AdvReac Type Severity Reaction Status Date / Time peanut oil Allergy Anaphylaxis Verified 08/17/22 12:05 simvastatin [From Zocor] AdvReac muscle pain Verified 08/17/22 12:05 Physical Exam Vitals: Vital Signs Temp Pulse Resp BP Pulse Ox 08/17/22 10:44 98.0 F 96 19 132/62 92 L Intake and Output 08/17/22 08/17/22 08/17/22 06:59 14:59 22:59 Other: Weight 114.305 kg Results CBC & Chem 7: 08/17/22 11:43 08/17/22 11:43 Labs: Abnormal Lab Results - Last 24 Hours (Table) 08/17/22 08/17/22 08/17/22 Range/Units 11:43 11:43 11:43 WBC 10.7 H (3.8-10.6) k/uL RBC 4.14 L (4.30-5.90) m/uL Hgb 11.9 L (13.0-17.5) gm/dL Hct 35.3 L (39.0-53.0) % RDW 16.4 H (11.5-15.5) % Neutrophils # 9.0 H (1.3-7.7) k/uL Lymphocytes # 0.7 L (1.0-4.8) k/uL APTT 52.6 H (22.0-30.0) sec Sodium 136 L (137-145) mmol/L Chloride 96 L (98-107) mmol/L BUN 80 H (9-20) mg/dL Creatinine 3.41 H (0.66-1.25) mg/dL Glucose 149 H (74-99) mg/dL Magnesium 2.4 H (1.6-2.3) mg/dL
[2022-08-17 18:22] LABS: Glucose,Whole Blood 130 mg/dL (70-110)
[2022-08-17] MEDS: BUMETANIDE 1 MG TAB PO SCH (20:00)
[2022-08-17] MEDS: TREPROSTINIL DIOLAMINE 1 MG PO SCH (20:01)
[2022-08-17] MEDS: TREPROSTINIL DIOLAMINE 2.5 MG PO SCH (20:01)
[2022-08-17] MEDS: MONTELUKAST 10 MG TAB PO SCH (20:01)
[2022-08-18] MEDS: IPRATROPIUM-ALBUTEROL 3 ML NEB INHALATION PRN ×2 (01:01→18:30)
[2022-08-18] MEDS: BUMETANIDE 1 MG TAB PO SCH ×2 (09:19→20:13)
[2022-08-18] MEDS: PRAVASTATIN SODIUM 80 MG TAB PO SCH (09:20)
[2022-08-18] MEDS: amLODIPine 10 MG TAB PO SCH (09:20)
[2022-08-18] MEDS: PANTOPRAZOLE 40 MG TABLET PO SCH (09:20)
[2022-08-18] MEDS: TREPROSTINIL DIOLAMINE 1 MG PO SCH ×3 (09:22→20:14)
[2022-08-18] MEDS: TREPROSTINIL DIOLAMINE 2.5 MG PO SCH ×3 (09:22→20:14)
[2022-08-18 11:49] LABS: Basophils # (A) 0.07 X 10*3/uL (0.00-0.10); Basophils % (A) 0.8 %; Eosinophils # (A) 0.29 X 10*3/uL (0.04-0.35); Eosinophils % (A) 3.5 %; HCT 30.6 % (39.6-50.0); Lymphocytes # (A) 0.81 X 10*3/uL (0.90-5.00); Lymphocytes % (A) 9.7 %; MCH 28.1 pg (27.0-32.0); MCHC 32.7 d/dL (32.0-37.0); Mean Platelet Volume 9.2 FL (9.5-12.2); Monocytes # (A) 0.75 X 10*3/uL (0.20-1.00); NRBC Per 100 WBC 0 X 10*3/uL (0.00-0.01); Neutrophils # (A) 6.37 X 10*3/uL (1.80-7.70); Neutrophils % (A) 76.5 %; Platelet Count 280 X 10*3/uL (140-440); RBC 3.56 X 10*6/uL (4.40-5.60); RDW 16.2 % (11.5-14.5); WBC 8.33 X 10*3/uL (4.50-10.00)
[2022-08-18 12:25] LABS: BUN/Creat Ratio 19.56 Ratio (12.00-20.00); Blood Urea Nitrogen 70.4 mg/dL (9.0-27.0); Calcium 9.1 mg/dL (8.7-10.3); Carbon Dioxide 23.8 mmol/L (21.6-31.8); Chloride 98 mmol/L (96-109); Glucose 101 mg/dL (70-110); Potassium 4.1 mmol/L (3.5-5.5); Sodium 138 mmol/L (135-145)
--- NOTE | 2022-08-18 12:42 | P.CNPUL ---
History of Present Illness Consult date: 08/18/22 Reason for consult: dyspnea, pleural effusion History of present illness: A very pleasant 72-year-old male patient presented to the hospital because of worsening shortness of breath and the patient was found to have a large left- sided pleural effusion. For that reason, pulmonary consultation was requested. I know this patient from the sleep Center the patient is known to have severe obstructive sleep apnea with an AHI of 95 he has been maintained on the BiPAP. The patient also has a remote history of renal cell carcinoma and he has unde rgone a right nephrectomy. The patient has chronic kidney disease,History of left lower extremity DVT, diabetes mellitus and hypertension. He had a prolonged hospitalization earlier this year. [facility] the choice for complications of pericardial effusion requiring surgical drainage. During the process, the patient also developed pleural effusions was drained. Details of this previous hospitalization is not available. The patient started developing pleural effusion again and based on the chest x-ray was done in June 2022, the effusion was small and subsequently progressed and it made her more symptomatic and for that reason he was hospitalized. A Port-A-Cath patient was requested. His last Eliquis intake was yesterday morning. No angina. No palpitation. No swelling in his lower extremities. No fever. No chills. No other complaints otherwise. A diagnostic and therapeutic thoracentesis to be done today. Review of Systems Constitutional: Reports fatigue, Reports weight loss Eyes: denies as per HPI, denies blurred vision, denies bulging eye, denies decreased vision, denies diplopia, denies discharge, denies dry eye, denies irritation, denies itching, denies pain, denies photophobia, denies loss of peripheral vision, denies loss of vision, denies tunnel vision/blind spots Ears: deny: decreased hearing, ear discharge, earache, tinnitus Ears, nose, mouth and throat: Reports as per HPI Breasts: absent: as per HPI, gynecomastia Cardiovascular: Reports decreased exercise tolerance, Reports dyspnea on exertion Respiratory: Reports dyspnea, Reports sleep apnea Gastrointestinal: Reports as per HPI Genitourinary: Reports as per HPI Musculoskeletal: Reports as per HPI Musculoskeletal: absent: ankle pain, ankle stiffness, ankle swelling Integumentary: Reports as per HPI Neurological: Reports as per HPI Psychiatric: Reports as per HPI Endocrine: Reports as per HPI Hematologic/Lymphatic: Reports as per HPI Allergic/Immunologic: Reports as per HPI Past Medical History Past Medical History: Asthma, Cancer, Diabetes Mellitus, Deep Vein Thrombosis (DVT), GERD/Reflux, Hypertension, Pulmonary Embolus (PE), Renal Disease, Sleep Apnea/CPAP/BIPAP Additional Past Medical History / Comment(s): diverticulosis, rt renal cell carcinoma, DVT left knee post op nephrectomy, pericardial effusion, CKD History of Any Multi-Drug Resistant Organisms: None Reported Past Surgical History: Cholecystectomy Additional Past Surgical History / Comment(s): partial rt nephrectomy, adrenal gland removed, colonoscopy, vaughn cataracts Past Anesthesia/Blood Transfusion Reactions: Unable to Obtain Additional Past Anesthesia/Blood Transfusion Reaction / Comment(s): unknown after kidney sx was in drug induced coma for one month Past Psychological History: No Psychological Hx Reported Smoking Status: Never smoker Past Alcohol Use History: None Reported Past Drug Use History: None Reported Medications and Allergies Home Medications Medication Instructions Recorded Confirmed Type Montelukast [Singulair] 10 mg PO HS 04/15/18 08/17/22 History amLODIPine BESYLATE 10 mg PO DAILY 04/15/18 08/17/22 History Pravastatin Sodium [Pravachol] 80 mg PO DAILY 05/03/20 08/17/22 History Omeprazole [PriLOSEC] 40 mg PO DAILY 05/18/20 08/17/22 History Apixaban [Eliquis] 5 mg PO BID 08/17/22 08/17/22 History Bumetanide [BUMEX] 2 mg PO BID 08/17/22 08/17/22 History Treprostinil Diolamine [Orenitram 1 mg PO TID 08/17/22 08/17/22 History ER] Treprostinil Diolamine [Orenitram 2.5 mg PO TID 08/17/22 08/17/22 History ER] Allergies Allergy/AdvReac Type Severity Reaction Status Date / Time peanut oil Allergy Anaphylaxis Verified 08/17/22 12:05 simvastatin [From Zocor] AdvReac muscle pain Verified 08/17/22 12:05 Physical Exam Vitals: Vital Signs Temp Pulse Pulse Resp BP BP Pulse Ox 08/18/22 06:50 98.4 F 89 18 134/77 93 L 08/18/22 02:00 98.2 F 91 16 129/80 91 L 08/18/22 01:14 100 08/18/22 01:03 100 08/17/22 19:54 98.2 F 95 24 132/75 94 L 08/17/22 17:46 100.0 F H 99 18 151/88 94 L Intake and Output 08/17/22 08/18/22 08/18/22 22:59 06:59 14:59 Intake Total 118 Balance 118 Intake: Oral 118 Other: # Voids 1 3 Weight 114.305 kg Patient is calm and comfortable, pleasant, currently on room air oxygen Head exam was generally normal. There was no scleral icterus or corneal arcus. Mucous membranes were moist. Neck was supple and without jugular venous distension, thyromegaly, or carotid bruits. Carotids were easily palpable bilaterally. There was no adenopathy. Lungs sounds are diminished in the left lung base along with that there is a dullness to percussion Cardiac exam revealed the PMI to be normally situated and sized. The rhythm was regular and no extrasystoles were noted during several minutes of auscultation. The first and second heart sounds were normal and physiologic splitting of the second heart sound was noted. There were no murmurs, rubs, clicks, or gallops. Abdominal exam revealed normal bowel sounds. The abdomen was soft, non-tender, and without masses, organomegaly, or appreciable enlargement of the abdominal aorta. Examination of the extremities revealed easily palpable radial, femoral and pedal pulses. There was no cyanosis, clubbing or edema. Examination of the skin revealed no evidence of significant rashes, suspicious appearing nevi or other concerning lesions. Neurologically, the patient is awake and alert and the patient does not have any focal neurological deficit. Cranial nerves are essentially intact. Results - Laboratory Findings CBC and BMP: 08/18/22 06:04 08/18/22 06:04 ABG WBC 8.33 X 10*3/uL (4.50-10.00) 08/18/22 06:04 RBC 3.56 X 10*6/uL (4.40-5.60) L 08/18/22 06:04 Hgb 10.0 d/dL (12.0-15.0) L 08/18/22 06:04 Hct 30.6 % (39.6-50.0) L 08/18/22 06:04 MCV 86.0 FL (80.0-97.0) 08/18/22 06:04 MCH 28.1 pg (27.0-32.0) 08/18/22 06:04 MCHC 32.7 d/dL (32.0-37.0) 08/18/22 06:04 RDW 16.2 % (11.5-14.5) H 08/18/22 06:04 Plt Count 280 X 10*3/uL (140-440) 08/18/22 06:04 MPV 9.2 FL (9.5-12.2) L 08/18/22 06:04 Immature Gran % (Auto) 0.50 % 08/18/22 06:04 Absolute Nucleated RBC 0 % 08/18/22 06:04 Neutrophils % 76.5 % 08/18/22 06:04 Lymphocytes % 9.7 % 08/18/22 06:04 Monocytes % 9.0 % 08/18/22 06:04 Eosinophils % 3.5 % 08/18/22 06:04 Basophils % 0.8 % 08/18/22 06:04 Immature Gran # 0.04 X 10*3/uL 08/18/22 06:04 Neutrophils # 6.37 X 10*3/uL (1.80-7.70) 08/18/22 06:04 Lymphocytes # 0.81 X 10*3/uL (0.90-5.00) L 08/18/22 06:04 Monocytes # 0.75 X 10*3/uL (0.20-1.00) 08/18/22 06:04 Eosinophils # 0.29 X 10*3/uL (0.04-0.35) 08/18/22 06:04 Basophils # 0.07 X 10*3/uL (0.00-0.10) 08/18/22 06:04 NRBC/100 WBC Diff 0 X 10*3/uL (0.00-0.01) 08/18/22 06:04 Anisocytosis Slight 08/17/22 11:43 PT 11.1 sec (9.0-12.0) 08/17/22 11:43 INR 1.1 (<1.2) 08/17/22 11:43 APTT 52.6 sec (22.0-30.0) H 08/17/22 11:43 Sodium 136 mmol/L (137-145) L 08/17/22 11:43 Potassium 4.2 mmol/L (3.5-5.1) 08/17/22 11:43 Chloride 96 mmol/L (98-107) L 08/17/22 11:43 Carbon Dioxide 25 mmol/L (22-30) 08/17/22 11:43 Anion Gap 15 mmol/L 08/17/22 11:43 BUN 80 mg/dL (9-20) H 08/17/22 11:43 Creatinine 3.41 mg/dL (0.66-1.25) H 08/17/22 11:43 Est GFR (CKD-EPI)AfAm 20 (>60 ml/min/1.73 sqM) 08/17/22 11:43 Est GFR (CKD-EPI)NonAf 17 (>60 ml/min/1.73 sqM) 08/17/22 11:43 Glucose 149 mg/dL (74-99) H 08/17/22 11:43 POC Glucose (mg/dL) 130 mg/dL (70-110) H 08/17/22 18:20 POC Glu Furniture Packer ID Judy Pierce 08/17/22 18:20 Plasma Lactic Acid Cezar 1.2 mmol/L (0.7-2.0) 08/17/22 11:43 Calcium 9.0 mg/dL (8.4-10.2) 08/17/22 11:43 Magnesium 2.4 mg/dL (1.6-2.3) H 08/17/22 11:43 Troponin I 0.022 ng/mL (0.000-0.034) 08/17/22 11:43 NT-Pro-B Natriuret Pep 2100 pg/mL 08/17/22 11:43 PT/INR, D-dimer PT 11.1 sec (9.0-12.0) 08/17/22 11:43 INR 1.1 (<1.2) 08/17/22 11:43 Abnormal lab findings: Abnormal Labs 08/17/22 08/17/22 08/17/22 11:43 11:43 11:43 WBC 10.7 H RBC 4.14 L Hgb 11.9 L Hct 35.3 L RDW 16.4 H MPV Neutrophils # 9.0 H Lymphocytes # 0.7 L APTT 52.6 H Sodium 136 L Chloride 96 L Anion Gap BUN 80 H Creatinine 3.41 H Est GFR (CKD-EPI) Glucose 149 H POC Glucose (mg/dL) Magnesium 2.4 H 08/17/22 08/18/22 08/18/22 18:20 06:04 06:04 WBC RBC 3.56 L Hgb 10.0 L Hct 30.6 L RDW 16.2 H MPV 9.2 L Neutrophils # Lymphocytes # 0.81 L APTT Sodium Chloride Anion Gap 16.20 H BUN 70.4 H Creatinine 3.6 H Est GFR (CKD-EPI) 17 L Glucose POC Glucose (mg/dL) 130 H Magnesium - Diagnostic Findings Chest x-ray: image reviewed CT scan - chest: image reviewed Assessment and Plan Plan: Left-sided pleural effusion, large, will need a diagnostic and therapeutic thoracentesis. Exact cause is not clear. Rule out parapneumonic. Rule out malignant effusion. Remote history of renal cell carcinoma with previous right nephrectomy, 2005 Chronic kidney disease, stage 3-4 History of pericardial effusion, drained Hypertension Remote history of DVT with a long-term and coagulation Severe obstructive sleep apnea maintained on BiPAP Bronchial asthma Plan We'll perform a diagnostic and therapeutic thoracentesis and the fluid was sent for analysis Obtain a follow-up CAT scan of the chest noncontrast following the procedure We'll continue to follow
--- NOTE | 2022-08-18 12:44 | P.PCN ---
Date of Procedure: 08/18/22 Preoperative Diagnosis: left pleural effusion Postoperative Diagnosis: same Procedure(s) Performed: thoracentesis Anesthesia: local Surgeon: Jalen Howard Pathology: other Condition: stable Disposition: floor Operative Findings: A time out was performed and the chest x-ray was reviewed, the appropriate side was confirmed and marked. My hands were washed immediately prior to the procedure. I wore a surgical cap, mask with protective eyewear, sterile gown and sterile gloves throughout the procedure. The patient was prepped and draped in a sterile manner using chlorhexidine scrub after the appropriate level was percussed and confirmed by ultrasound. 1% lidocaine was used to anesthesize the skin, subcutaneous tissue, superior aspect of the rib periosteum and parietal pleura. A finder needle was then introduced over the superior aspect of the rib to locate the pleural fluid; 2colored fluid was aspirated at a depth of approximately 2 cm. A 10-blade scalpel was used to caden the skin at the insertion site. The [id number] needle was then introduced through the skin incision into the pleural space using negative aspiration pressure and the red colometric indicator to confirm appropriate positioning of the needle. The thoracentesis catheter was then threaded without difficulty. 2400 ml of turbid colored fluid was removed without difficulty. The catheter was then removed. No immediate complications were noted during the procedure. A post-procedure chest x-ray is pending at the time of this note. The fluid will be sent for studies. Estimated blood loss is 0cc
--- NOTE | 2022-08-18 13:52 | CA ---
Transthoracic Echo Report Name: Mani Watson Age: 72 Gender: M : 1950 Exam Date: 08/18/2022 11:41 Exam Location: [place] [facility] Ht (in): 72 Wt (lb): 252 Ordering Physician: Chuck Molina MD Attending/Referring Phys: Resource Conservation Specialist Bessie Banerjee RDCS Procedure CPT: Indications: chf? Cardiac Hx: Technical Quality: Fair Contrast 1: Total Dose (mL): Contrast 2: Total Dose (mL): MEASUREMENTS (Male / Female) Normal Values 2D ECHO LV Diastolic Diameter PLAX 4.2 cm 4.2 - 5.9 / 3.9 - 5.3 cm LV Systolic Diameter PLAX 1.7 cm IVS Diastolic Thickness 1.2 cm 0.6 - 1.0 / 0.6 - 0.9 cm LVPW Diastolic Thickness 1.3 cm 0.6 - 1.0 / 0.6 - 0.9 cm LV Relative Wall Thickness 0.6 RV Internal Dim ED PLAX 4.1 cm DOPPLER AV Peak Velocity 144.5 cm/s AV Peak Gradient 8.4 mmHg AV Mean Velocity 97.1 cm/s AV Mean Gradient 4.3 mmHg AV Velocity Time Integral 22.7 cm LVOT Peak Velocity 98.9 cm/s LVOT Peak Gradient 3.9 mmHg LVOT Velocity Time Integral 26.8 cm MV Area PHT 2.9 cm??? Mitral E Point Velocity 60.7 cm/s Mitral A Point Velocity 106.6 cm/s Mitral E to A Ratio 0.6 MV Deceleration Time 260.4 ms MV E' Velocity 7.2 cm/s Mitral E to MV E' Ratio 8.4 TR Peak Velocity 302.2 cm/s TR Peak Gradient 36.5 mmHg Right Atrial Pressure 20.0 mmHg Pulmonary Artery Systolic Pressu 56.5 mmHg Right Ventricular Systolic Press 63.6 mmHg FINDINGS Left Ventricle Mildly increased left ventricular wall thickness. Left ventricular cavity size normal. Normal left ventricular systolic function with no obvious regional wall motion abnormalities. Left ventricular ejection fraction is estimated at 55-60 %. Right Ventricle Normal right ventricular size and function. Severe pulmonary hypertension. Right ventricular systolic pressure estimated at 64 mm Hg. Right Atrium Normal right atrial size. Left Atrium Normal left atrial size. Mitral Valve Structurally normal mitral valve. Mild mitral regurgitation. Aortic Valve Trileaflet aortic valve. No aortic valve stenosis or regurgitation. Tricuspid Valve Structurally normal tricuspid valve. Mild tricuspid regurgitation. Pulmonic Valve Trace pulmonic regurgitation. Pericardium Mild Pericardial effusion located anteriorly around the left atria and left ventricle. Pleural effusion noted. Aorta Normal size aortic root and proximal ascending aorta. CONCLUSIONS Normal LV size and systolic function RV hypertrophy with preserved systolic function Thickened pericardium with small pericardial effusion Large pleural effusion Previewed by: Dr. Luc Beltran MD (Electronically Signed) Final Date: 18 August 2022 13:51
--- NOTE | 2022-08-18 13:56 | CT ---
EXAMINATION TYPE: CT chest wo con DATE OF EXAM: 08/18/2022 COMPARISON: 08/29/2021 HISTORY: Pleural effusion. CT DLP: 670.[address] of the chest was performed with lung and mediastinal window settings submitted. The la ck of contrast limits evaluation of the vascular, mediastinal and parenchymal structures including th e upper abdomen. LUNGS: Small left-sided pleural effusion with maximal AP measurement of 4.3 cm. There is associated c ompressive atelectasis. Trace right-sided pleural effusion is noted. No CT evidence of interstitial l michelle disease. MEDIASTINUM/FLORECITA: Thoracic aorta is of normal caliber with limited evaluation given lack of contrast . The heart is enlarged. Redemonstrated is pericardial effusion which has decreased in size since gilbert or examination. Maximal pericardial effusion thickness of 1.8 cm. No evidence for mediastinal mass. No lymph nodes greater than 1cm. UPPER ABDOMEN: Initially image fat-containing lesion posterior right kidney. Granulomas seen within t he spleen. Probable left subcentimeter cyst posterior segment right hepatic lobe. OTHER: No significant other abnormality. IMPRESSION: 1. Small left-sided pleural effusion with associated compressive atelectasis. Trace right-sided pleu ral effusion. 2. Cardiomegaly and pericardial effusion as noted.
--- NOTE | 2022-08-18 14:21 | P.PN ---
Subjective Progress Note Date: 08/18/22 Hospital Course: 72-year-old male with history of hypertension, dyslipidemia, asthma/COPD, DVT/PE, pulmonary hypertension, JUWAN, right renal cell carcinoma status post right partial nephrectomy presenting with worsening shortness of breath. In the ED, temperature was 98, pulse 96, respiratory rate 19, blood pressure 132/62, saturating at 92% on room air. Chest x-ray shows left-sided c onsolidation/pleural effusion. EKG shows normal sinus rhythm. Chest ultrasound shows large left pleural effusion. WBC was 10.7, hemoglobin 11.9, sodium 136, chloride 96, BUN 80, creatinine 3.41, baseline 1 year ago was 1.5. Troponin negative. ProBNP 2100. Patient admitted for acute dyspnea secondary to pleural effusion, possible CHF exacerbation. Patient was admitted earlier during the year at [facility] with concern of pericardial effusion, and had pericardial window in August 26 normal thorax, and further complications. He also had significant renal injury leading to dialysis for a few months, now off of dialysis. Oncology was consulted during this admission, thoracentesis done. Subjective: Patient seen and examined at bedside. Shortness of breath is about the same. Pertinent positives and negatives as discussed above, a complete review of systems was performed and all other systems are negative. Vitals Signs Reviewed. General: nontoxic, no distress, appears at stated age Derm: warm, dry Head: atraumatic, normocephalic, symmetric Eyes: EOMI, no lid lag, anicteric sclera Mouth: no lip lesion, mucus membranes moist Cardiovascular: S1S2 reg, no murmur Lungs: CTA bilateral, no rhonchi, no rales , no accessory muscle use Abdominal: soft, nontender to palpation, no guarding, no appreciable organomegaly Ext: no gross muscle atrophy, no edema, no contractures Neuro: CN II-XI grossly intact, no focal neuro deficits Psych: Alert, oriented, appropriate affect Data Reviewed Today: Pertinent Labs: Hemoglobin 10, platelet 280, WBC 8.33, sodium 138, potassium 4.1, creatinine is 3.6 Imaging: Chest CT shows small left-sided pleural effusion post thoracentesis, trace right-sided pleural effusion, cardiomegaly and pericardial effusion Echocardiogram report reviewed, shows normal LV size and systolic function, thickened pericardium with small pericardial effusion, large pleural effusion. Assessment and Plan: Left-sided pleural effusion, likely parapneumonic effusion Pulmonary hypertension Chronic renal failure History of right renal cell carcinoma status post right partial nephrectomy, recent dialysis -Thoracentesis completed -Pulmonology note reviewed, pending fluid analysis -Eliquis restarted -Continue oral Bumex -Continue to trend creatinine DVT ppx: Eliquis Code status: Full code Anticipated discharge place: Home Anticipated discharge time: Pending clinical course Objective - Vital Signs Vital signs: Vital Signs Temp 98.4 F 08/18/22 06:50 Pulse 89 08/18/22 06:50 Resp 18 08/18/22 06:50 BP 134/77 08/18/22 06:50 Pulse Ox 93 L 08/18/22 06:50 FiO2 Intake & Output 08/17/22 08/18/22 08/18/22 18:59 06:59 18:59 Intake Total 118 Balance 118 Weight 114.305 kg Intake: Oral 118 Other: # Voids 3 - Labs CBC & Chem 7: 08/18/22 06:04 08/18/22 06:04 Labs: Abnormal Lab Results - Last 24 Hours (Table) 08/17/22 08/18/22 08/18/22 Range/Units 18:20 06:04 06:04 RBC 3.56 L (4.40-5.60) X 10*6/uL Hgb 10.0 L (12.0-15.0) d/dL Hct 30.6 L (39.6-50.0) % RDW 16.2 H (11.5-14.5) % MPV 9.2 L (9.5-12.2) FL Lymphocytes # 0.81 L (0.90-5.00) X 10*3/uL Anion Gap 16.20 H (4.00-12.00) mmol/L BUN 70.4 H (9.0-27.0) mg/dL Creatinine 3.6 H (0.6-1.5) mg/dL Est GFR (CKD-EPI) 17 L (>=60) POC Glucose (mg/dL) 130 H (70-110) mg/dL
[2022-08-18] MEDS: SODIUM CHLORIDE 0.9% 1,000 ML IV SCH (19:06)
[2022-08-18] MEDS: MONTELUKAST 10 MG TAB PO SCH (20:13)
[2022-08-18] MEDS: APIXABAN 5 MG TAB PO SCH (20:13)
[2022-08-18 23:53] LABS: Cholesterol,BF Source Pleural Fluid; Cholesterol,Body Fluid 103 mg/dL; Glucose, BF Source Pleural Fluid; Glucose, Body Fluid 108 mg/dL; LDH, Body Fluid Source Pleural Fluid; T. Protein, Body Fluid Source Pleural Fluid; Total Protein, Body Fluid >3600 mg/dL
[2022-08-19 00:12] LABS: Appearance,BF Hazy (Clear)
[2022-08-19 03:13] VITALS: TEMP 98.2
[2022-08-19 08:03] VITALS: BP 115/70; PULSE 91; RESP 18
[2022-08-19] MEDS: amLODIPine 10 MG TAB PO SCH (08:37)
[2022-08-19] MEDS: BUMETANIDE 1 MG TAB PO SCH (08:37)
[2022-08-19] MEDS: PRAVASTATIN SODIUM 80 MG TAB PO SCH (08:37)
[2022-08-19] MEDS: PANTOPRAZOLE 40 MG TABLET PO SCH (08:37)
[2022-08-19] MEDS: TREPROSTINIL DIOLAMINE 1 MG PO SCH (08:38)
[2022-08-19] MEDS: TREPROSTINIL DIOLAMINE 2.5 MG PO SCH (08:39)
[2022-08-19] MEDS: APIXABAN 5 MG TAB PO SCH (12:21)
--- NOTE | 2022-08-19 13:16 | P.PN ---
Subjective Progress Note Date: 08/19/22 A very pleasant 72-year-old male patient presented to the hospital because of worsening shortness of breath and the patient was found to have a large left- sided pleural effusion. For that reason, pulmonary consultation was requested. I know this patient from the sleep Center the patient is known to have severe obstructive sleep apnea with an AHI of 95 he has been maintained on the BiPAP. The patient also has a remote history of renal cell carcinoma and he has undergone a right nephrectomy. The patient has chronic kidney disease,History of left lower extremity DVT, diabetes mellitus and hypertension. He had a prolonged hospitalization earlier this year. [facility] the choice for complications of pericardial effusion requiring surgical drainage. During the process, the patient also developed pleural effusions was drained. Details of this previous hospitalization is not available. The patient started developing pleural effusion again and based on the chest x-ray was done in June 2022, the effusion was small and subsequently progressed and it made her more symptomatic and for that reason he was hospitalized. A Port-A-Cath patient was requested. His last Eliquis intake was yesterday morning. No angina. No palpitation. No swelling in his lower extremities. No fever. No chills. No other complaints otherwise. A diagnostic and therapeutic thoracentesis to be done today. On today's evaluation of 08/19/2022, the patient is stable doing well on room air oxygen. Thoracentesis was done yesterday and the fluid was an exudate based on the protein criteria on the pleural fluid analysis. Cytology is still pending for now. Meanwhile, the CAT scan of the chest showed atelectatic changes in the left lung base, trace left-sided pleural effusion, cardiomegaly, pericardial effusion was noted that was small, nonspecific mediastinal lymph nodes were also seen. Patient is currently on room air oxygen. No other complaints otherwise for now. Objective - Vital Signs Vital signs: Vital Signs Temp 98.2 F 08/19/22 07:00 Pulse 91 08/19/22 07:00 Resp 18 08/19/22 08:00 BP 115/70 08/19/22 07:00 Pulse Ox 95 08/19/22 07:00 FiO2 Intake & Output 08/18/22 08/19/22 08/19/22 18:59 06:59 18:59 Intake Total 236 118 Balance 236 118 Intake: Oral 236 118 Other: # Voids 3 1 - Exam Patient is calm and comfortable, pleasant, currently on room air oxygen Head exam was generally normal. There was no scleral icterus or corneal arcus. Mucous membranes were moist. Neck was supple and without jugular venous distension, thyromegaly, or carotid bruits. Carotids were easily palpable bilaterally. There was no adenopathy. Lungs adequate breath sounds bilaterally and the arytenoids and left lung has improved postthoracentesis Cardiac exam revealed the PMI to be normally situated and sized. The rhythm was regular and no extrasystoles were noted during several minutes of auscultation. The first and second heart sounds were normal and physiologic splitting of the second heart sound was noted. There were no murmurs, rubs, clicks, or gallops. Air entry left lung bases improved Abdominal exam revealed normal bowel sounds. The abdomen was soft, non-tender, and without masses, organomegaly, or appreciable enlargement of the abdominal aorta. Examination of the extremities revealed easily palpable radial, femoral and pedal pulses. There was no cyanosis, clubbing or edema. Examination of the skin revealed no evidence of significant rashes, suspicious appearing nevi or other concerning lesions. Neurologically, the patient is awake and alert and the patient does not have any focal neurological deficit. Cranial nerves are essentially intact. - Labs CBC & Chem 7: 08/18/22 06:04 08/18/22 06:04 Labs: Abnormal Lab Results - Last 24 Hours (Table) 08/18/22 Range/Units 12:41 Fluid Appearance Hazy A (Clear) Assessment and Plan Plan: Left-sided pleural effusion, large, will need a diagnostic and therapeutic thoracentesis. Exact cause is not clear. Rule out parapneumonic. Rule out ma lignant effusion. The patient underwent thoracentesis and the flow to the Awaiting cytology. CAT scan of the chest shows some residual atelectatic changes in the left lung base along with trace effusion. Remote history of renal cell carcinoma with previous right nephrectomy, 2006 Chronic kidney disease, stage 3-4 History of pericardial effusion, drained Hypertension Remote history of DVT with a long-term and coagulation Severe obstructive sleep apnea maintained on BiPAP Bronchial asthma Plan Awaiting pleural fluid cytology We'll continue to follow Clinically stable and the patient is here for discharge from the pulmonary standpoint. He needs to be followed up on outpatient basis. Anti-cognition can be resumed.
--- NOTE | 2022-08-19 13:25 | P.DS ---
Providers Date of admission: 08/17/22 15:27 Expected date of discharge: 08/19/22 Attending physician: Monisha Barker DO Consults: 08/17/22 14:17 Consult Physician Routine Consulting Provider: Jalen Howard Consult Reason/Comments: pleural effusion Do you want consulting provider notified?: Yes Primary care physician: Miguel Ángel Cordon Hospital Course: Discharge Diagnosis: Left-sided pleural effusion, likely parapneumonic effusion Pulmonary hypertension Chronic renal failure History of right renal cell carcinoma status post right partial nephrectomy, recent dialysis Hospital Course: 72-year-old male with history of hypertension, dyslipidemia, asthma/COPD, DVT/PE, pulmonary hypertension, JUWAN, right renal cell carcinoma status post right partial nephrectomy presenting with worsening shortness of breath. In the ED, temperature was 98, pulse 96, respiratory rate 19, blood pressure 132/62, saturating at 92% on room air. Chest x-ray shows left-sided conso lidation/pleural effusion. EKG shows normal sinus rhythm. Chest ultrasound shows large left pleural effusion. WBC was 10.7, hemoglobin 11.9, sodium 136, chloride 96, BUN 80, creatinine 3.41, baseline 1 year ago was 1.5. Troponin negative. ProBNP 2100. Patient admitted for acute on chronic dyspnea secondary to pleural effusion. Patient was admitted earlier during the year at [facility] with concern of pericardial effusion, and had pericardial window, and further complications. He also had significant renal injury leading to dialysis for a few months, now off of dialysis. Pulmonology was consulted during this admission, thoracentesis done. Pleural fluid is exudative in nature. Culture and cytology pending. Patient currently on room air. He will follow up with pulmonology to go over pleural fluid results. Patient seen and examined at bedside. Vital signs reviewed and stable. General: nontoxic, no distress, appears at stated age Derm: warm, dry Head: atraumatic, normocephalic, symmetric Eyes: EOMI, no lid lag, anicteric sclera Mouth: no lip lesion, mucus membranes moist Cardiovascular: S1S2 reg, no murmur Lungs: CTA bilateral, no rhonchi, no rales , no accessory muscle use Abdominal: soft, nontender to palpation, no guarding, no appreciable organomegaly Ext: no gross muscle atrophy, no edema, no contractures Neuro: CN II-XI grossly intact, no focal neuro deficits Psych: Alert, oriented, appropriate affect A total of 33 minutes of time were spent preparing this complex discharge summary. Patient was discharged on 08/19/22 at 1144. Patient Condition at Discharge: Stable Plan - Discharge Summary Discharge Rx Participant: Yes New Discharge Prescriptions: Continue amLODIPine BESYLATE 10 mg PO DAILY Montelukast [Singulair] 10 mg PO HS Pravastatin Sodium [Pravachol] 80 mg PO DAILY Omeprazole [PriLOSEC] 40 mg PO DAILY Bumetanide [BUMEX] 2 mg PO BID Apixaban [Eliquis] 5 mg PO BID Treprostinil Diolamine [Orenitram ER] 2.5 mg PO TID Treprostinil Diolamine [Orenitram ER] 1 mg PO TID Discharge Medication List Montelukast [Singulair] 10 mg PO HS 04/15/18 [History] amLODIPine BESYLATE 10 mg PO DAILY 04/15/18 [History] Pravastatin Sodium [Pravachol] 80 mg PO DAILY 05/03/20 [History] Omeprazole [PriLOSEC] 40 mg PO DAILY 05/18/20 [History] Apixaban [Eliquis] 5 mg PO BID 08/17/22 [History] Bumetanide [BUMEX] 2 mg PO BID 08/17/22 [History] Treprostinil Diolamine [Orenitram ER] 1 mg PO TID 08/17/22 [History] Treprostinil Diolamine [Orenitram ER] 2.5 mg PO TID 08/17/22 [History] Follow up Appointment(s)/Referral(s): Tenisha Salgado PAC [REFERRING] - 1-2 days Jalen Howard MD [STAFF PHYSICIAN] - 1 Week Patient Instructions/Handouts: Pleural Effusion (DC), Thoracentesis (DC) Activity/Diet/Wound Care/Special Instructions: Please see PCP and pulmonology. Discharge Disposition: HOME SELF-CARE
== END 2022-08-19 12:34 | disposition home or self-care (01) ==
LOC: EC 10:32 → 6NMEDSUR 15:27
PROVIDERS: ADMIT Internal Medicine; ATTEND Internal Medicine
DX: J90 Pleural effusion, not elsewhere classified (principal); I12.9 Hypertensive chronic kidney disease with stage 1 through stage 4 chronic kidney disease, or unspecified chronic kidney disease; N18.4 Chronic kidney disease, stage 4 (severe); E11.22 Type 2 diabetes mellitus with diabetic chronic kidney disease; I27.20 Pulmonary hypertension, unspecified; I31.39 Other pericardial effusion (noninflammatory); G47.33 Obstructive sleep apnea (adult) (pediatric); E78.5 Hyperlipidemia, unspecified; J44.9 Chronic obstructive pulmonary disease, unspecified; K57.90 Diverticulosis of intestine, part unspecified, without perforation or abscess without bleeding; K21.9 Gastro-esophageal reflux disease without esophagitis; Z79.01 Long term (current) use of anticoagulants; Z79.899 Other long term (current) drug therapy; Z91.010 Allergy to peanuts; Z88.8 Allergy status to other drugs, medicaments and biological substances; Z86.711 Personal history of pulmonary embolism; Z86.718 Personal history of other venous thrombosis and embolism; Z87.01 Personal history of pneumonia (recurrent); Z85.528 Personal history of other malignant neoplasm of kidney; Z90.5 Acquired absence of kidney; Z90.49 Acquired absence of other specified parts of digestive tract; Z98.42 Cataract extraction status, left eye; Z98.41 Cataract extraction status, right eye; Z98.890 Other specified postprocedural states
CPT/HCPCS: 99285; 36415; 94640 ×2; 93005; 93306; 88108; 88305; 83880; 80048 ×2; 89050; 83605; 83735; 84484; 85025 ×2; 85610; 85730; 88342; 88341; 87070; 87205; 87075; 87116; 87102; 87206; 82945; 83615; 84157; 82465; 71046; 76604; 71250; G0378 ×3

== ENCOUNTER 2022-11-01 11:03 | Day surgery (SDC) | payer MEDICARE ==
[2022-10-31 10:29] VITALS: BMI 35.2
[~2022-11-01 11:03] MED LIST: ATROPINE SULFATE 0.4 MG/ML 1 ML VIAL IM ONE; LACTATED RINGERS 1,000 ML IV SCH
[2022-11-01 11:43] VITALS: RESP 16; TEMP 97.8
[2022-11-01 11:52] LABS: Glucose,Whole Blood 89 mg/dL (70-110)
[2022-11-01] MEDS ORDERED: PROPOFOL 10 MG/ML 20 ML VIAL IV ONE (12:02)
[2022-11-01] MEDS ORDERED: LIDOCAINE 2% INJ 20 MG/ML INTRATRACH ONE (12:20)
[2022-11-01 12:53] VITALS: BP 110/69; PULSE 64
--- NOTE | 2022-11-01 14:19 | PCN ---
PROCEDURE NOTE PULMONARY/CRITICAL CARE PROCEDURE NOTE: PROCEDURE PERFORMED: Bronchoscopy, airway examination, therapeutic lavage, BAL right middle lobe. FIRST MECHANICAL PRODUCT DESIGN ENGINEER: Dr. Babb. General anesthesia was provided by Anesthesia. The patient's procedure was done in room #2. There was informed consent and universal timeout. PREOPERATIVE DIAGNOSES: Severe asthma, retained secretions, tracheomalacia. POSTOPERATIVE DIAGNOSES: Severe asthma, retained secretions, tracheomalacia. DESCRIPTION OF PROCEDURE: After the patient was adequately sedated and being fully monitored, the bronchoscope was inserted through the right nostril. It passed through the right nasopharynx into the oropharynx. The hypopharyngeal structures appeared normal including anterior commissure, true cords, false cords, piriform sinuses right and left, epiglottis, vallecula. Next, after topicalization of the glottic opening, the bronchoscope was pushed through the glottic opening into the trachea. There was a fair amount of tracheomalacia noted particularly in the mid to lower segments of the trachea. The patient was easily collapsible in the lower respiratory tract. Next, the right and left mainstem were topicalized. We did a thorough evaluation of right upper lobe and its 3 segments, right middle lobe and its 2 segments, right lower lobe and its 5 segments, left upper lobe proper and its 2 segments, lingula and its 2 segments, left lower lobe and its 4 segments. Similar findings were noted throughout. There was moderate to severe bronchitis. There were erythema and hyperemia of the airways. There was mucosal friability. There was no dominant mass or tumor. The secretions were scant. The bronchoscope was inserted and wedged into the right middle lobe. We did a formal BAL. More than 30 mL of fluid was recovered. The fluid will be sent for analysis including cytology and microbiology. The patient tolerated the procedure well. The bronchoscope was withdrawn. The patient will be recovered. Pictures were given to the patient's nephew. MMODL / IJN: [id number] /
[2022-11-02 05:30] LABS: Appearance,BF Cloudy (Clear); RBC, Body Fluid 87125 /UL (0-2000)
[2022-11-05 10:23] LABS: Nucleated Cells, Body Fluid 60 /UL
== END 2022-11-01 13:17 | disposition home or self-care (01) ==
LOC: ORWHC2ENDO 11:03
PROVIDERS: ATTEND Internal Medicine Critical Care Medicine
DX: J39.8 Other specified diseases of upper respiratory tract (principal); J45.909 Unspecified asthma, uncomplicated; G47.30 Sleep apnea, unspecified; E78.5 Hyperlipidemia, unspecified; I10 Essential (primary) hypertension; I31.39 Other pericardial effusion (noninflammatory); J90 Pleural effusion, not elsewhere classified; E11.9 Type 2 diabetes mellitus without complications; E66.9 Obesity, unspecified; G47.33 Obstructive sleep apnea (adult) (pediatric); K21.9 Gastro-esophageal reflux disease without esophagitis; Z85.528 Personal history of other malignant neoplasm of kidney; Z91.010 Allergy to peanuts; Z88.8 Allergy status to other drugs, medicaments and biological substances; Z86.711 Personal history of pulmonary embolism; Z86.718 Personal history of other venous thrombosis and embolism; Z79.84 Long term (current) use of oral hypoglycemic drugs; Z79.01 Long term (current) use of anticoagulants; Z79.899 Other long term (current) drug therapy; Z79.51 Long term (current) use of inhaled steroids; Z90.49 Acquired absence of other specified parts of digestive tract; Z98.890 Other specified postprocedural states; Z68.36 Body mass index [BMI] 36.0-36.9, adult
CPT/HCPCS: 87798 ×3; 87496; 87498; 87529; 88108; 88305; 89050; 87502; 87634; 87070; 87205; 87116; 87102; 87206; 31624; J2001; J2704

== ENCOUNTER → 2022-12-07 | Outpatient (CLI) | payer MEDICARE ==
--- NOTE | 2022-12-08 06:56 | CA ---
Transthoracic Echo Report Name: Mani Watson Age: 72 Gender: M : 1950 Exam Date: 12/07/2022 13:37 Exam Location: [facility] Ht (in): 73 Wt (lb): 255 Ordering Physician: Yayo Martino DO Attending/Referring Phys: Technician Helper Instrument Bessie Banerjee RDCS Procedure CPT: Indications: I27.21 SECONDARY PULMONARY ARTERIAL HYPERTENSION Cardiac Hx: Technical Quality: Fair Contrast 1: Total Dose (mL): Contrast 2: Total Dose (mL): MEASUREMENTS (Male / Female) Normal Values 2D ECHO LV Diastolic Diameter PLAX 4.2 cm 4.2 - 5.9 / 3.9 - 5.3 cm LV Systolic Diameter PLAX 2.8 cm IVS Diastolic Thickness 1.8 cm 0.6 - 1.0 / 0.6 - 0.9 cm LVPW Diastolic Thickness 1.8 cm 0.6 - 1.0 / 0.6 - 0.9 cm LV Relative Wall Thickness 0.8 RV Internal Dim ED PLAX 5.0 cm M-MODE Aortic Root Diameter MM 3.9 cm LA Systolic Diameter MM 1.3 cm LA Ao Ratio MM 0.3 AV Cusp Separation MM 5.4 cm DOPPLER AV Peak Velocity 146.5 cm/s AV Peak Gradient 8.6 mmHg AV Mean Velocity 108.5 cm/s AV Mean Gradient 5.1 mmHg AV Velocity Time Integral 30.0 cm LVOT Peak Velocity 99.6 cm/s LVOT Peak Gradient 4.0 mmHg LVOT Velocity Time Integral 24.4 cm Mitral E Point Velocity 84.7 cm/s Mitral A Point Velocity 150.3 cm/s Mitral E to A Ratio 0.6 MV Deceleration Time 288.1 ms MV E' Velocity 6.0 cm/s Mitral E to MV E' Ratio 14.2 TR Peak Velocity 369.2 cm/s TR Peak Gradient 54.5 mmHg Right Ventricular Systolic Press 64.6 mmHg FINDINGS Left Ventricle Moderately increased left ventricular wall thickness. Left ventricular cavity size normal. Normal left ventricular systolic function with no obvious regional wall motion abnormalities. Left ventricular ejection fraction is estimated at 55-60 %. Right Ventricle Severe right ventricular dilatation. Severe pulmonary hypertension. Right ventricular systolic pressure estimated at 65 mm hg. Right Atrium Normal right atrial size. Left Atrium Normal left atrial size. Mitral Valve Structurally normal mitral valve. Mild mitral regurgitation. Aortic Valve Trileaflet aortic valve. No aortic valve stenosis or regurgitation. Tricuspid Valve [id number] tricuspid regurgitation. Pulmonic Valve Structurally normal pulmonic valve. Trace pulmonic regurgitation. Pericardium Minimal pericardial effusion (normal variant). Pleural effusion. Aorta Normal size aortic root and proximal ascending aorta. CONCLUSIONS Severe pulmonary hypertension, moderately enlarged right ventricle Preserved LV systolic function Previewed by: Dr. Luc Beltran MD (Electronically Signed) Final Date: 08 December 2022 06:55
== END | disposition home or self-care (01) ==
LOC: RADECHMAIN 13:21
PROVIDERS: ATTEND Internal Medicine Critical Care Medicine
DX: I27.21 Secondary pulmonary arterial hypertension (principal); I51.7 Cardiomegaly
CPT/HCPCS: 93306